=== PATIENT | male | born 1960 | race Caucasian/White ===

== ENCOUNTER 2021-08-26 08:31 | Inpatient (IN) | payer MEDICAID ==
[~2021-08-26] VITALS: Ht 190.5 cm; Wt 99.3 kg
[2021-08-26 08:35] VITALS: BP_SYST 96
--- NOTE | 2021-08-26 08:39 | NUR ---
Patient to ER bed 8 to gown for evaluation. Side rails up. Report given to Pooja PÉREZ.
[2021-08-26] MEDS ORDERED: dilTIAZem HCL IVP 5 MG/ML VIAL IVP ONE ×3 (08:45→09:30)
--- NOTE | 2021-08-26 08:45 | NUR ---
Assumed care of patient who came from home c/o rapid heart rate x 2 days. Patient states he fell in the shower on 08/24/2021 and felt some dizziness, lack of balance after fall. He states he feels pain to his left arm and shoulder. Patient states he has no hx of health concerns and has never been diagnosed with a cardiac-related condition. Patient is A&Ox4, calm and cooperative. He is on gurney and appears in no signs of acute distress. Denies chest pain at this time.
[2021-08-26] MEDS ORDERED: dilTIAZem HCL IVP 5 MG/ML VIAL ONE (08:50)
--- NOTE | 2021-08-26 08:50 | NUR ---
ER Dr. Moya at bedside examining patient.
--- NOTE | 2021-08-26 08:52 | NUR ---
PORTABLE XRAY AT THE BEDSIDE
--- NOTE | 2021-08-26 09:03 | NUR ---
LAB AT THE BEDSIDE FOR BLOOD DRAW
[2021-08-26 09:23] LABS: BASOPHILS % (AUTO) 0.5 % (0.0-2.0); EOSINOPHILS # (AUTO) 0.1 K/uL (0.0-0.4); EOSINOPHILS % (AUTO) 1.4 % (0.0-4.0); HEMATOCRIT 42.9 % (36-54); HEMOGLOBIN 14.9 g/dL (14.0-18.0); LYMPHOCYTES % (AUTO) 16.5 % (20.5-51.5); MEAN CORPUSCULAR HEMOGLOBIN 31 pg (27-31); MEAN CORPUSCULAR HGB CONC 35 % (32-36); MEAN CORPUSCULAR VOLUME 88 fL (79.0-98.0); MONOCYTES # (AUTO) 0.3 K/uL (0.0-1.0); MONOCYTES % (AUTO) 4.9 % (1.7-9.3); NEUTROPHILS # (AUTO) 4.8 K/uL (1.8-7.7); NEUTROPHILS % (AUTO) 76.7 % (40.0-70.0); PLATELET COUNT (AUTO) 204 K/uL (130-430); RED BLOOD CELL COUNT(AUTO) 4.88 MIL/uL (4.2-6.2); RED CELL DISTRIBUTION WIDTH 16.1 % (9.0-15.0); WHITE BLOOD COUNT (AUTO) 6.2 K/uL (4.8-10.8)
[2021-08-26] MEDS ORDERED: DILTIAZEM HCL 60 MG TABLET PO ONE (09:30)
[2021-08-26 09:51] LABS: ANION GAP 8 (5-15); CALCIUM 8.4 mg/dL (8.4-11.0); CHLORIDE 104 mmol/L (98-107); CREATININE 0.82 mg/dL (0.55-1.30); GLUCOSE 324 mg/dL (70-99); POTASSIUM 4.4 mmol/L (3.5-5.1); SODIUM SERUM 136 mmol/L (136-145); UREA NITROGEN, BLOOD 13 mg/dL (8-21)
[2021-08-26 09:58] LABS: GFR AFRICAN AMERICAN 122 mL/min (>90)
[2021-08-26 10:07] LABS: ALANINE AMINOTRANSFERASE 27 U/L (12-78); ALBUMIN 3.3 g/dL (3.4-4.8); ASPARTATE AMINOTRANSFERASE 17 U/L (10-37); THYROID STIMULATING HORMONE 2.43 uIu/mL (0.36-3.74); TOTAL BILIRUBIN 0.6 mg/dL (0.0-1.0)
--- NOTE | 2021-08-26 10:10 | NUR ---
PT ABLE TO VOID IN URINAL, SPECIMEN SENT TO LAB
--- NOTE | 2021-08-26 10:41 | NUR ---
DR. CORREIA SPEAKING TO DR. BISWAS REGARDING ADMISSION. TO PUT IN ADMIT ORDERS
[2021-08-26 10:45] LABS: BARBITURATE, URINE NEGATIVE (NEG <=200); BENZODIAZEPINE, URINE NEGATIVE (NEG <=150); CANNABINOID, URINE NEGATIVE (NEG <=50); COCAINE, URINE NEGATIVE (NEG <=150); METHAMPHETAMINES SCREEN,URINE NEGATIVE (NEG <=500); OPIATE, URINE NEGATIVE (NEG <=100); PHENCYCLIDINE SCREEN,URINE NEGATIVE (NEG <=25); UR TRICYCLIC ANTIDEPRESSANTS NEGATIVE (NEG <=300); URINE AMPHETAMINE NEGATIVE (NEG <=500); URINE METHADONE NEGATIVE (NEG <=200); URINE OXYCODONE SCREEN NEGATIVE (NEG <=100); URINE PROPOXYPHENE SCREEN NEGATIVE (NEG <=300)
--- NOTE | 2021-08-26 11:08 | NUR ---
Admit bed requested Patient will be admitted to care of . Admitted to TELE unit. Diagnosis TACHYCARDIA, DIZZINESS Inpatient (Yes or No) YES Observation (Yes or No) NO Orientation concerns or request close to nursing station (Yes or No) NO Covid Status NEGATIVE On vent or bipap NO Isolation requirements NO Needs a sitter NO From Home (Yes or if No enter name of facility) HOME Requires Dialysis (Yes or No) NO Med Rec Completed (Yes of No) YES
[2021-08-26] MEDS ORDERED: MORPHINE 2 MG/ML INJ. SYRINGE IVP PRN (11:15)
[2021-08-26] MEDS ORDERED: ONDANSETRON HCL 4 MG/2 ML VIAL IVP PRN (11:15)
[2021-08-26] MEDS ORDERED: ECO81 PO (11:30)
--- NOTE | 2021-08-26 11:41 | NUR ---
Medication reconciliation completed with information provided by PT. Any prior medication reconciliation on file was reviewed and corrected.
--- NOTE | 2021-08-26 12:15 | NUR ---
Patient will be admitted to care of Dr. Aponte. Admitted to tele unit. Will go to room 106B. Belongings list completed. Complete and up to date summary report printed. SBAR report to be given at bedside with opportunity for questions.
[2021-08-26 12:23] VITALS: BP_SYST 101
--- NOTE | 2021-08-26 12:30 | NUR ---
ADMISSION NOTE: Patient alert, oriented, verbally responsive. IV patent, no acute distress noted, patient ambulatory and BRP. Will continue to monitor.
--- NOTE | 2021-08-26 12:32 | NUR ---
CONSULTATION PAGED REASON FOR CONSULTATION:TACHYCARDIA WAS CONSULT CALLED?Y -PERSON WHO WAS NOTIFIED:HARPREET CONSULTING PHYSICIAN:TA BOND MOTOR OPERATOR SPECIALTY:CARDIO MOTOR OPERATOR PHONE NUMBER:[phone] REQUESTING PHYSICIAN:
[2021-08-26 12:37] VITALS: BP_SYST 101
[2021-08-26 16:00] VITALS: BP_SYST 107
[2021-08-26] MEDS ORDERED: ASPIRIN 325 MG TABLET PO ONE (16:00)
--- NOTE | 2021-08-26 19:12 | NUR ---
CLOSING NOTE: Patient alert, oriented, verbally responsive, BRP, able to make his needs known. No acute distress throughout shift, IV patent. Kept clean and dry throughout shift, safety precaution observed, bed alarm on, call light within reach, side rails up for safety. Will continue to monitor until night RN shift.
[2021-08-26 19:15] VITALS: BP_SYST 104
--- NOTE | 2021-08-26 19:18 | NUR ---
OPENING NOTES: Patient received from AM shift. Patient is AA&Ox4 able to make needs known denies any pain or distress at this time. Chest rise is even unlabored on RA. Normal heart sounds present S1 and S2 on tele monitoring. Active BSx4, denies pain with palpation, no distention is noted. Patient is ambulatory with steady gait, continent of B&B and denies pain or problems with urination. No skin issues were noted. Safety protocols are in place, patient has call light within reach. Will resume care and continue to monitor throughout the shift.
[2021-08-26 20:00] VITALS: BP_SYST 104
[2021-08-26] MEDS: METOPROLOL TARTRATE 25 MG TABLET PO SCH (21:00)
[2021-08-26 21:51] LABS: CHOLESTEROL 181 mg/dL (<200); HDL CHOLESTEROL 25 mg/dL (>45); TRIGLYCERIDES 177 mg/dL (30-150)
[2021-08-26 21:52] LABS: LDL CHOLESTEROL 124 mg/dL (<100)
[2021-08-27 00:15] VITALS: BP_SYST 110
--- NOTE | 2021-08-27 00:30 | NUR ---
PATIENT RESTING: Patient resting quietly. No acute distress noted. Vital signs within normal range. Patient denies pain, call light is within reach.
[2021-08-27 06:19] LABS: BASOPHILS % (AUTO) 0.9 % (0.0-2.0); EOSINOPHILS # (AUTO) 0.1 K/uL (0.0-0.4); EOSINOPHILS % (AUTO) 2.3 % (0.0-4.0); HEMATOCRIT 37.3 % (36-54); HEMOGLOBIN 13.1 g/dL (14.0-18.0); LYMPHOCYTES % (AUTO) 22.6 % (20.5-51.5); MEAN CORPUSCULAR HEMOGLOBIN 31 pg (27-31); MEAN CORPUSCULAR HGB CONC 35 % (32-36); MEAN CORPUSCULAR VOLUME 89 fL (79.0-98.0); MONOCYTES # (AUTO) 0.3 K/uL (0.0-1.0); MONOCYTES % (AUTO) 6.7 % (1.7-9.3); NEUTROPHILS # (AUTO) 2.9 K/uL (1.8-7.7); NEUTROPHILS % (AUTO) 67.5 % (40.0-70.0); PLATELET COUNT (AUTO) 170 K/uL (130-430); RED BLOOD CELL COUNT(AUTO) 4.21 MIL/uL (4.2-6.2); RED CELL DISTRIBUTION WIDTH 15.7 % (9.0-15.0); WHITE BLOOD COUNT (AUTO) 4.4 K/uL (4.8-10.8)
--- NOTE | 2021-08-27 07:22 | NUR ---
CLOSING NOTES: Patient is in bed resting no s/s of distress noted at this time. Patient is able to verbalize needs and has call light within reach. All current shift needs have been met. Will differ current care to AM shift nurse for continuity of care.
[2021-08-27 07:25] LABS: CALCIUM 8.7 mg/dL (8.4-11.0); CREATININE 0.74 mg/dL (0.55-1.30); PHOSPHORUS 3.2 mg/dL (2.7-4.5); POTASSIUM 3.7 mmol/L (3.5-5.1)
[2021-08-27 07:30] VITALS: BP_SYST 116
--- NOTE | 2021-08-27 08:00 | NUR ---
OPENING NOTES: PATIENT RESTING IN BED. BREATHING EVEN AND NON LABORED TO RA. DENIES ANY DISCOMFORT AT THIS TIME. FALL AND SAFETY PRECAUTION REINFORCED. CALL LIGHT WITHIN REACH.
[2021-08-27] MEDS: METOPROLOL TARTRATE 25 MG TABLET PO SCH (08:31)
[2021-08-27] MEDS ORDERED: DILTIAZEM HCL 120 MG CAP.SR.24H PO SCH (09:00)
[2021-08-27] MEDS ORDERED: ASPIRIN 81 MG TAB.CHEW PO SCH (09:00)
[2021-08-27] MEDS ORDERED: lisinopriL 5 MG TABLET PO SCH (09:00)
[2021-08-27] MEDS ORDERED: ATORVASTATIN 20 MG TABLET PO SCH (09:00)
[2021-08-27] MEDS ORDERED: APIXABAN 2.5 MG TABLET PO ONE (09:30)
[2021-08-27] MEDS ORDERED: DILT120C89 PO (09:37)
[2021-08-27] MEDS ORDERED: APIX5TAB PO (09:37)
[2021-08-27 10:33] VITALS: BP_SYST 107
--- NOTE | 2021-08-27 10:55 | NUR ---
D/C Patient Patient given medication reconciliation form and D/C instructions. Exit Care provided. Patient verbalized understanding. MD discussed with patient the results and treatment provided. Ambulatory with steady gait for discharge to home. Patient in stable condition, ID band removed. IV catheter removed, intact and dressing applied, no active bleeding. E script sent to preferred pharmacy. All belongings sent with patient.
[2021-08-27] MEDS ORDERED: APIXABAN 2.5 MG TABLET PO SCH (21:00)
== END 2021-08-27 10:55 | disposition home or self-care (01) | DRG 201 ==
LOC: SED 08:31 → STU 11:06
PROVIDERS: ADMIT Student in an Organized Health Care Education/Training Program; ATTEND Student in an Organized Health Care Education/Training Program
DX: I48.92 Unspecified atrial flutter (principal); E72.51 Non-ketotic hyperglycinemia; E88.09 Other disorders of plasma-protein metabolism, not elsewhere classified; I45.10 Unspecified right bundle-branch block; Z20.822 Contact with and (suspected) exposure to COVID-19; E78.5 Hyperlipidemia, unspecified; Z85.828 Personal history of other malignant neoplasm of skin; Z79.01 Long term (current) use of anticoagulants
CPT/HCPCS: 36415; 71045; 80048; 80053; 80061; 80307; 83036; 83735; 83880; 84100; 84439; 84443; 84484; 85025; 93005; 93306; 93880; 96374; 99285; G0378; J3490

== ENCOUNTER 2022-05-09 08:45 | Emergency (ER) | payer BC, OTHER ==
[~2022-05-09] VITALS: Ht 193 cm; Wt 84.8 kg
[~2022-05-09 08:45] MED LIST: APIX5TAB PO; DILT120C89 PO; ECO81 PO
[2022-05-09 08:51] VITALS: BP_SYST 129
--- NOTE | 2022-05-09 09:05 | NUR ---
Pt bib self from home, ambulated to bed 4. Pt A&Ox4, able to make needs known. Pt c/o bilateral hip pain x7 days. Pt rates pain 10/10. Pt describes pain as sharp. Pt states pain when getting in and out of bed. Pt states he has been taking Extra Strength Tylenol for pain. Pt denies injury. Pt denies falling. Pt denies arthritis. Pt states he takes Eliquiz for afib. Safety measures in place.
--- NOTE | 2022-05-09 09:12 | NUR ---
ER Dr. Moya at bedside examining patient.
[2022-05-09] MEDS ORDERED: IBUPROFEN 800 MG TABLET PO ONE (09:15)
[2022-05-09] MEDS ORDERED: HYDROcodone/ACETAMIN 10-325 MG TAB PO ONE (09:15)
--- NOTE | 2022-05-09 09:23 | NUR ---
Xray at bedside.
--- NOTE | 2022-05-09 09:33 | NUR ---
Placed in room 4 . Placed on monitoring and evaluation advisor, blood pressure machine and pulse oximeter. To gown for exam. Side rails up. Report given to
[2022-05-09 09:47] LABS: BASOPHILS # (AUTO) 0.1 K/uL (0.0-0.2); BASOPHILS % (AUTO) 0.9 % (0.0-2.0); EOSINOPHILS % (AUTO) 0.2 % (0.0-4.0); HEMATOCRIT 32.8 % (36-54); HEMOGLOBIN 11.3 g/dL (14.0-18.0); LYMPHOCYTES # (AUTO) 0.9 K/uL (1.0-5.5); MEAN CORPUSCULAR HEMOGLOBIN 35 pg (27-31); MEAN CORPUSCULAR HGB CONC 35 % (32-36); MEAN CORPUSCULAR VOLUME 100 fL (79.0-98.0); MONOCYTES # (AUTO) 0.1 K/uL (0.0-1.0); MONOCYTES % (AUTO) 1.2 % (1.7-9.3); NEUTROPHILS # (AUTO) 9.1 K/uL (1.8-7.7); PLATELET COUNT (AUTO) 116 K/uL (130-430); RED BLOOD CELL COUNT(AUTO) 3.27 MIL/uL (4.2-6.2); RED CELL DISTRIBUTION WIDTH 16.5 % (9.0-15.0)
[2022-05-09 09:53] LABS: WHITE BLOOD COUNT (AUTO) 10.2 K/uL (4.8-10.8)
[2022-05-09 10:13] LABS: ALBUMIN 3.2 g/dL (3.4-4.8); C-REACTIVE PROTEIN QUANT 11.7 mg/dL (0-0.5); CALCIUM 8.9 mg/dL (8.4-11.0); CREATININE 0.76 mg/dL (0.55-1.30); TOTAL BILIRUBIN 0.9 mg/dL (0.0-1.0); URIC ACID 4.5 mg/dL (2.4-7.0)
--- NOTE | 2022-05-09 10:24 | NUR ---
Pt awake and alert with son at bedside.
[2022-05-09] MEDS ORDERED: INSULIN REGULAR, HUMAN 100 UNITS/ML, 3 ML VIAL SUBCUT SCH (10:45)
--- NOTE | 2022-05-09 10:45 | NUR ---
Dr Moya at bedside discussing POC.
[2022-05-09] MEDS ORDERED: HYDR-3917 PO (10:48)
[2022-05-09] MEDS ORDERED: IBUP-1969 PO (10:48)
[2022-05-09] MEDS ORDERED: METF-518 PO (10:48)
[2022-05-09 11:02] LABS: ERYTHROCYTE SEDIMENTATION RATE 43 MM/HR (0-15)
[2022-05-09] MEDS ORDERED: INSULIN REGULAR, HUMAN 10 UNITS/0.1 ML, 3 ML VIAL ONE (11:06)
--- NOTE | 2022-05-09 11:11 | NUR ---
Patient given written and verbal discharge instructions and verbalizes understanding. ER Dr Moya discussed with patient the results and treatment provided. Patient in stable condition. ID arm band removed. Rx of Metformin, Gilson, and Motrin given. Patient educated on pain management and to follow up with PMD. Pain Scale 2/10 Opportunity for questions provided and answered. Medication side effect fact sheet provided.
[2022-05-09 11:14] VITALS: BP_SYST 118
[2022-05-09 11:17] LABS: NEUTROPHILS % (AUTO) 88.7 % (40.0-70.0)
[2022-05-10] MEDS ORDERED: HYDR-3917 PO (09:05)
[2022-05-10] MEDS ORDERED: LIDO1ADH71 TD (09:05)
[2022-05-10] MEDS ORDERED: ACET-2634 PO (09:05)
== END 2022-05-09 11:11 | disposition home or self-care (01) ==
LOC: SED 08:45
DX: E16.2 Hypoglycemia, unspecified (principal); M25.552 Pain in left hip; M25.551 Pain in right hip; Z79.899 Other long term (current) drug therapy
CPT/HCPCS: 36415; 72170-TC; 80053; 84550; 85025; 85651-TC; 86140; 96372; 99284; J1815

== ENCOUNTER 2022-05-10 07:53 | Emergency (ER) | payer BC, OTHER ==
[~2022-05-10] VITALS: Ht 188 cm; Wt 90.7 kg
[~2022-05-10 07:53] MED LIST changes: +HYDR-3917 PO; +IBUP-1969 PO; +METF-518 PO
[2022-05-10 07:55] VITALS: BP_SYST 125
--- NOTE | 2022-05-10 08:00 | NUR ---
BROUGHT BACK TO BED #7 VIA WHEELCHAIR, PLACED IN BED AND TRIAGED. REPORT GIVEN TO ZULY
[2022-05-10] MEDS ORDERED: MORPHINE 4 MG INJ. 4 MG/ML VIAL IM ONE (08:30)
--- NOTE | 2022-05-10 08:40 | NUR ---
PT TO XRAY VIA W/C
[2022-05-10] MEDS ORDERED: LIDO1ADH71 TD (09:05)
[2022-05-10] MEDS ORDERED: ACET-2634 PO (09:05)
[2022-05-10] MEDS ORDERED: HYDR-3917 PO (09:05)
[2022-05-10] MEDS ORDERED: HYDROcodone/ACETAMIN 5-325 MG TAB (NORCO/ VICODIN) PO ONE (10:00)
[2022-05-10 10:16] VITALS: BP_SYST 111
--- NOTE | 2022-05-10 10:18 | NUR ---
DISCHARGE INSTRUCTIONS REVIEWED WITH PT, PT VERBALIZED UNDERSTANDING AND DENIED ANY QUESTIONS. PT ASSISTED ONTO W/C AND TRANSFERRED TO SONS CAR WITH NO ACUTE DISTRESS. BREATHING EVEN AND UNLABORED. PT WITH ALL DISCHARGE PAPERWORK AND PERSONAL BELONGINGS
== END 2022-05-10 10:16 | disposition home or self-care (01) ==
LOC: SED 07:53
DX: S76.012A Strain of muscle, fascia and tendon of left hip, initial encounter (principal); Z79.899 Other long term (current) drug therapy; W22.01XA Walked into wall, initial encounter; Y93.89 Activity, other specified; Y92.89 Other specified places as the place of occurrence of the external cause; Y99.8 Other external cause status
CPT/HCPCS: 99284; 82962; 72100; 73502; 96372; J2270

== ENCOUNTER 2022-06-16 19:52 | Emergency (ER) | payer BC, OTHER ==
[~2022-06-16 19:52] MED LIST changes: +ACET-2634 PO; +LIDO1ADH71 TD
[2022-06-16 20:58] VITALS: BP_SYST 128
== END 2022-06-16 22:24 | disposition left against medical advice (07) ==
LOC: SED 19:52
DX: R41.82 Altered mental status, unspecified (principal); Z53.21 Procedure and treatment not carried out due to patient leaving prior to being seen by health care provider
CPT/HCPCS: 99281

== ENCOUNTER → 2022-06-17 | Emergency (ER) | payer BC ==
[~2022-06-17] VITALS: Ht 193 cm; Wt 84.8 kg
[~2022-06-17] MED LIST changes: +cefTRIAXone 1 GM in LIDOCAINE 1%, 20 ML MDV 2.1 ML IM ONE
--- NOTE | 2022-06-17 12:00 | NUR ---
Urine specimen collected and sent to lab.
[2022-06-17 12:20] VITALS: BP_SYST 107
[2022-06-17 12:45] LABS: ANION GAP 6 (5-15); CHLORIDE 98 mmol/L (98-107); CREATININE 1.06 mg/dL (0.55-1.30); GFR AFRICAN AMERICAN 91 mL/min (>90); GLUCOSE 169 mg/dL (70-99); UREA NITROGEN, BLOOD 22 mg/dL (8-21)
[2022-06-17 12:50] LABS: HEMATOCRIT 27.3 % (36-54); HEMOGLOBIN 9.3 g/dL (14.0-18.0); MEAN CORPUSCULAR HEMOGLOBIN 35 pg (27-31); MEAN CORPUSCULAR HGB CONC 34 % (32-36); MEAN CORPUSCULAR VOLUME 103 fL (79.0-98.0); PLATELET COUNT (AUTO) 88 K/uL (130-430); RED BLOOD CELL COUNT(AUTO) 2.66 MIL/uL (4.2-6.2); RED CELL DISTRIBUTION WIDTH 16.8 % (9.0-15.0); WHITE BLOOD COUNT (AUTO) 12.8 K/uL (4.8-10.8)
[2022-06-17 12:52] LABS: BILIRUBIN,URINE NEGATIVE (NEGATIVE); BLOOD, URINE NEGATIVE (NEGATIVE); COLOR,URINE YELLOW (YELLOW); GLUCOSE,URINE 3+ (NEGATIVE); KETONES,URINE NEGATIVE (NEGATIVE); LEUKOCYTE ESTERASE ,URINE 1+ (NEGATIVE); NITRITE, URINE POSITIVE (NEGATIVE); PROTEIN URINE NEGATIVE (NEGATIVE)
[2022-06-17 12:52] LABS: ALANINE AMINOTRANSFERASE 28 U/L (12-78); ALBUMIN 3.4 g/dL (3.4-4.8); ALCOHOL, BLOOD 7 mg/dL (<10); ASPARTATE AMINOTRANSFERASE 15 U/L (10-37); TOTAL BILIRUBIN 1.5 mg/dL (0.0-1.0)
[2022-06-17 12:58] LABS: CLARITY/URINE HAZY (CLEAR)
[2022-06-17 13:04] LABS: BARBITURATE, URINE NEGATIVE (NEG <=200); BENZODIAZEPINE, URINE NEGATIVE (NEG <=150); CANNABINOID, URINE NEGATIVE (NEG <=50); COCAINE, URINE NEGATIVE (NEG <=150); METHAMPHETAMINES SCREEN,URINE NEGATIVE (NEG <=500); OPIATE, URINE NEGATIVE (NEG <=100); PHENCYCLIDINE SCREEN,URINE NEGATIVE (NEG <=25); UR TRICYCLIC ANTIDEPRESSANTS NEGATIVE (NEG <=300); URINE AMPHETAMINE NEGATIVE (NEG <=500); URINE METHADONE NEGATIVE (NEG <=200); URINE OXYCODONE SCREEN NEGATIVE (NEG <=100); URINE PROPOXYPHENE SCREEN NEGATIVE (NEG <=300)
[2022-06-17 13:28] LABS: BACTERIA,URINE RARE /HPF (None Seen); RBC,URINE 0-3 /HPF (0-3); WBC,URINE 20-50 /HPF (0-3)
--- NOTE | 2022-06-17 14:00 | NUR ---
PT CALLED NO ANSWER
[2022-06-17 14:04] LABS: BAND % (MANUAL) 3 % (0-6); BASOPHILS % (MANUAL) 0 % (0-2); EOSINOPHILS % (MANUAL) 0 % (0-7); LYMPHOCYTES % (MANUAL) 29 % (20-46); MONOCYTES % (MANUAL) 7 % (0-11)
--- NOTE | 2022-06-17 15:00 | NUR ---
pt c/o no answer. LWBS
== END | disposition left against medical advice (07) ==
LOC: SED 11:35
DX: R41.0 Disorientation, unspecified (principal); Z53.21 Procedure and treatment not carried out due to patient leaving prior to being seen by health care provider
CPT/HCPCS: 99281; 85027; 80307; 80053; 85007; 87086; 84484; 36415; 81000; G0482

== ENCOUNTER 2022-07-25 08:13 | Emergency (ER) | payer BC, MEDICAID ==
[~2022-07-25] VITALS: Ht 182.9 cm; Wt 81.2 kg
[~2022-07-25 08:13] MED LIST changes: -cefTRIAXone 1 GM in LIDOCAINE 1%, 20 ML MDV 2.1 ML IM ONE
[2022-07-25 08:21] VITALS: BP_SYST 126
--- NOTE | 2022-07-25 08:24 | NUR ---
Placed in room 3 . Placed on clinical research monitor, blood pressure machine and pulse oximeter. To gown for exam. Side rails up. Report given to
--- NOTE | 2022-07-25 08:25 | NUR ---
ER at bedside examining patient.
--- NOTE | 2022-07-25 08:35 | NUR ---
PATIENT ALBAN SCHAEFER FROM HOME. PATIENT C/O SEEING A YOUNG GIRL IN HIS HOME THAT WAS NOT THERE. STATES THIS HAS OCCURRED ONCE BEFORE. DENIES HEARING VOICES OR OTHER AUDITORY HALLUCINATIONS. DENIES SUICIDAL IDEATION. MEDICAL HISTORY OF DIABETES. BLOOD SUGAR CURRENTLY 93. MD AT BEDSIDE UPON ARRIVAL TO ER BED 3. VSS. DENIES PAIN. N/O RECEIVED FOR MEDICAL CLEARANCE.
[2022-07-25 09:08] LABS: ANION GAP 5 (5-15); BASOPHILS # (AUTO) 0.1 K/uL (0.0-0.2); BASOPHILS % (AUTO) 0.8 % (0.0-2.0); CALCIUM 8.2 mg/dL (8.4-11.0); CHLORIDE 103 mmol/L (98-107); EOSINOPHILS % (AUTO) 0.1 % (0.0-4.0); GFR AFRICAN AMERICAN 126 mL/min (>90); GLUCOSE 146 mg/dL (70-99); HEMOGLOBIN 7.2 g/dL (14.0-18.0); LYMPHOCYTES # (AUTO) 0.8 K/uL (1.0-5.5); LYMPHOCYTES % (AUTO) 8.9 % (20.5-51.5); MEAN CORPUSCULAR HEMOGLOBIN 36 pg (27-31); MEAN CORPUSCULAR HGB CONC 34 % (32-36); MEAN CORPUSCULAR VOLUME 105 fL (79.0-98.0); MONOCYTES # (AUTO) 0.1 K/uL (0.0-1.0); MONOCYTES % (AUTO) 0.7 % (1.7-9.3); NEUTROPHILS # (AUTO) 7.6 K/uL (1.8-7.7); NEUTROPHILS % (AUTO) 89.5 % (40.0-70.0); PLATELET COUNT (AUTO) 52 K/uL (130-430); RED CELL DISTRIBUTION WIDTH 18.5 % (9.0-15.0); UREA NITROGEN, BLOOD 16 mg/dL (8-21); WHITE BLOOD COUNT (AUTO) 8.5 K/uL (4.8-10.8)
[2022-07-25 09:10] LABS: RED BLOOD CELL COUNT(AUTO) 1.97 MIL/uL (4.2-6.2)
[2022-07-25 09:11] LABS: HEMATOCRIT 20.8 % (36-54)
[2022-07-25 09:12] LABS: ALANINE AMINOTRANSFERASE 16 U/L (12-78); ALBUMIN 3.2 g/dL (3.4-4.8); ASPARTATE AMINOTRANSFERASE 12 U/L (10-37)
[2022-07-25 09:13] LABS: ACETAMINOPHEN < 1 ug/mL (1-30)
[2022-07-25 09:14] LABS: ALCOHOL, BLOOD < 3 mg/dL (<10)
--- NOTE | 2022-07-25 09:14 | NUR ---
UA & COVID SAMPLE COLLECTED & SENT TO LAB
--- NOTE | 2022-07-25 09:35 | NUR ---
DR. CORREIA AT BEDSIDE
--- NOTE | 2022-07-25 11:43 | NUR ---
Patient given written and verbal discharge instructions and verbalizes understanding. ER MD DR. CORREIA discussed with patient the results and treatment provided. Patient in stable condition. ID arm band removed. Patient educated on pain management and to follow up with PMD. Pain Scale 0/10. Opportunity for questions provided and answered. Medication side effect fact sheet provided.
[2022-07-25 11:46] VITALS: BP_SYST 136
== END 2022-07-25 11:43 | disposition home or self-care (01) ==
LOC: SED 08:13
DX: R44.1 Visual hallucinations (principal); D64.9 Anemia, unspecified; Z79.899 Other long term (current) drug therapy; Z79.84 Long term (current) use of oral hypoglycemic drugs; Z20.822 Contact with and (suspected) exposure to COVID-19
CPT/HCPCS: 99285; 70450; 71045; 87426; 80053; 82550; 82962; 85025; 36415; 93005; 76376; G0482; G0480; G0481; 81025

== ENCOUNTER 2022-07-26 07:40 | Emergency (ER) | payer BC, OTHER ==
[~2022-07-26] VITALS: Ht 193 cm; Wt 89.8 kg
--- NOTE | 2022-07-26 07:45 | NUR ---
DR. CORREIA IN TRIAGE ROOM TO ASSESS PT.
--- NOTE | 2022-07-26 07:50 | NUR ---
PT TRIAGED AND TAKEN TO BED 6, ENDORED TO FABBY RN. PT BIB FOR FOLLOW UP LAB. PT WAS AT [facility] YESTERDAY AND WAS FOUND TO HAVE A LOW HGB. PT BACK HERE TO TODAY FOR FOLLOW UP CBC.
[2022-07-26 07:58] VITALS: BP_SYST 101
--- NOTE | 2022-07-26 07:59 | NUR ---
Patient arrived to ED 6 for c/o being on blood thinners and previously having a "low hemoglobin" count. Patient is responsive, alert & oriented x4. Respiration even and unlabored. No shortness of breath. Vital signs stable. Denies pain. Patient is able to talk. at bedside. Dr. Moya came to MSE patient. traffic monitor specialist placed. Will continue to monitor patient.
[2022-07-26 08:24] LABS: HEMOGLOBIN 7.3 g/dL (14.0-18.0); MEAN CORPUSCULAR HEMOGLOBIN 36 pg (27-31); MEAN CORPUSCULAR HGB CONC 34 % (32-36); MEAN CORPUSCULAR VOLUME 106 fL (79.0-98.0); PLATELET COUNT (AUTO) 60 K/uL (130-430); RED BLOOD CELL COUNT(AUTO) 2.02 MIL/uL (4.2-6.2); RED CELL DISTRIBUTION WIDTH 19.1 % (9.0-15.0); WHITE BLOOD COUNT (AUTO) 7.9 K/uL (4.8-10.8)
[2022-07-26 08:30] LABS: CALCIUM 8.6 mg/dL (8.4-11.0); CREATININE 0.85 mg/dL (0.55-1.30)
[2022-07-26 08:35] LABS: ALBUMIN 3.3 g/dL (3.4-4.8); TOTAL BILIRUBIN 1.9 mg/dL (0.0-1.0)
[2022-07-26 08:38] LABS: HEMATOCRIT 21.5 % (36-54)
--- NOTE | 2022-07-26 08:39 | NUR ---
CRITICAL LABS HGB 7.[address] CORREIA MADE AWARE, NNOS. .
--- NOTE | 2022-07-26 08:45 | NUR ---
Denies AH/VH/SI/HI, patient is coherent, able to follow commands. at bedside. Will continue to monitor.
--- NOTE | 2022-07-26 08:46 | NUR ---
Dr. Moya came to talk to family about lab results and plan of care.
--- NOTE | 2022-07-26 08:54 | NUR ---
Patient given written and verbal discharge instructions and verbalizes understanding. ER MD discussed with patient the results and treatment provided. Patient in stable condition. ID arm band removed. Follow-up with PCP in few weeks. Patient educated on pain management and to follow up with PMD. Opportunity for questions provided and answered. Medication side effect fact sheet provided.
[2022-07-26 08:57] VITALS: BP_SYST 120
[2022-07-26 10:16] LABS: ATYPICAL LYMPHOCYTES % 11 % (0-0); BAND % (MANUAL) 10 % (0-6); BASOPHILS % (MANUAL) 0 % (0-2); EOSINOPHILS % (MANUAL) 0 % (0-7); LYMPHOCYTES % (MANUAL) 36 % (20-46); METAMYELOCYTES % 5 % (0-0); MONOCYTES % (MANUAL) 6 % (0-11); MYELOCYTES % 4 % (0-0); PROMYELOCYTES % 4 % (0-0)
== END 2022-07-26 08:57 | disposition home or self-care (01) ==
LOC: SED 07:40
DX: D64.9 Anemia, unspecified (principal); Z79.899 Other long term (current) drug therapy
CPT/HCPCS: 36415; 80053; 85007; 85027; 99283

== ENCOUNTER 2022-08-16 11:58 | Inpatient (IN) | payer BC, OTHER ==
[~2022-08-16] VITALS: Ht 190.5 cm; Wt 77.1 kg
[2022-08-16 12:00] VITALS: BP_SYST 111
--- NOTE | 2022-08-16 12:00 | NUR ---
BROUGHT BACK TO BED #8 AND TRIAGED. REPORT GIVEN TO JORGE
--- NOTE | 2022-08-16 12:03 | NUR ---
Pt brought by with c/o generalized weakness, pale skin, denies bleeding, states he has Hx of anemia, skin pink and warm, cap refill <, VSS.
--- NOTE | 2022-08-16 12:05 | NUR ---
Dr Campos evaluating patient at bedside
[2022-08-16 12:51] LABS: HEMATOCRIT 23.8 % (36-54); HEMOGLOBIN 7.9 g/dL (14.0-18.0); MEAN CORPUSCULAR HEMOGLOBIN 38 pg (27-31); MEAN CORPUSCULAR HGB CONC 33 % (32-36); MEAN CORPUSCULAR VOLUME 115 fL (79.0-98.0); PLATELET COUNT (AUTO) 50 K/uL (130-430); RED BLOOD CELL COUNT(AUTO) 2.08 MIL/uL (4.2-6.2); RED CELL DISTRIBUTION WIDTH 22.6 % (9.0-15.0)
[2022-08-16 13:06] LABS: CALCIUM 8.7 mg/dL (8.4-11.0); CREATININE 0.87 mg/dL (0.55-1.30)
[2022-08-16 13:10] LABS: INR 1.1 (0.80-1.20); PROTHROMBIN TIME 10.9 SECS (9.5-12.5)
[2022-08-16 13:11] LABS: ALBUMIN 3.6 g/dL (3.4-4.8); TOTAL BILIRUBIN 2.9 mg/dL (0.0-1.0)
[2022-08-16 13:42] LABS: BAND % (MANUAL) 11 % (0-6); LYMPHOCYTES % (MANUAL) 35 % (20-46)
[2022-08-16 13:43] LABS: ATYPICAL LYMPHOCYTES % 1 % (0-0); BASOPHILS % (MANUAL) 0 % (0-2); EOSINOPHILS % (MANUAL) 0 % (0-7); METAMYELOCYTES % 5 % (0-0); MONOCYTES % (MANUAL) 10 % (0-11); MYELOCYTES % 2 % (0-0)
[2022-08-16] MEDS ORDERED: MORPHINE 4 MG INJ. 4 MG/ML VIAL IVP ONE (13:45)
[2022-08-16] MEDS ORDERED: ONDANSETRON HCL 4 MG/2 ML VIAL ONE (14:02)
[2022-08-16] MEDS ORDERED: ONDANSETRON HCL 4 MG/2 ML VIAL IVP ONE (14:15)
[2022-08-16] MEDS ORDERED: PIPERACILLIN/TAZOBACTAM 3.375 GM/VIAL (ZOSYN) IV ONE (14:40)
[2022-08-16] MEDS ORDERED: NACL 0.9% 2,100 ML IV ONE (14:45)
[2022-08-16] MEDS: PIPERACILLIN/TAZO 3.375 GM in NS 50 ML IV ONE ×2 (14:46→15:10)
--- NOTE | 2022-08-16 14:46 | NUR ---
Blood requisition sent to the lab
--- NOTE | 2022-08-16 14:47 | NUR ---
Pt A&Ox2, VSS,respirations even and unlabored, cap refill <3.
--- NOTE | 2022-08-16 14:57 | NUR ---
Pt returning from CT on stable condition
[2022-08-16] MEDS ORDERED: MUPIROCIN 2% TOPICAL OINTMENT 22 GM NS PRN (15:00)
[2022-08-16] MEDS ORDERED: ACETAMINOPHEN 325 MG TABLET PO PRN ×2 (15:00)
[2022-08-16] MEDS ORDERED: MORPHINE 2 MG/ML INJ. SYRINGE IVP PRN (15:00)
[2022-08-16] MEDS ORDERED: POTASSIUM CHLORIDE 20 MEQ TAB.PRT.SR PO PRN (15:00)
[2022-08-16] MEDS ORDERED: DOCUSATE SODIUM 100 MG CAPSULE PO PRN (15:00)
[2022-08-16] MEDS ORDERED: ONDANSETRON HCL 4 MG/2 ML VIAL IVP PRN (15:00)
[2022-08-16] MEDS ORDERED: MAGNESIUM SULFATE 50 ML IV PRN (15:00)
--- NOTE | 2022-08-16 15:11 | NUR ---
Pt urinating at this time, urine sent to the lab
--- NOTE | 2022-08-16 15:20 | NUR ---
Admit bed requested Patient will be admitted to care of [Prema]. Admitted to [Tele] unit. Diagnosis [ANEMIA] Inpatient (Yes or No) [Yes] Observation (Yes or No) [No] Orientation concerns or request close to nursing station (Yes or No) [yes] Covid Status [n/a] On vent or bipap [n/a] Isolation requirements [n/a] Needs a sitter [n/a] From Home (Yes or if No enter name of facility) [yes] Requires Dialysis (Yes or No) [n/a] Med Rec Completed (Yes of No) [yes]
[2022-08-16] MEDS ORDERED: PRO40 PO (15:27)
[2022-08-16] MEDS ORDERED: INSU300I SQ (15:27)
[2022-08-16] MEDS ORDERED: EMPA1TAB30 (15:27)
[2022-08-16] MEDS ORDERED: DICL50TA9 PO (15:27)
[2022-08-16] MEDS ORDERED: GABA-529 PO (15:27)
--- NOTE | 2022-08-16 15:36 | NUR ---
Medication reconciliation completed with information provided by patient. Any prior medication reconciliation on file was reviewed and corrected.
--- NOTE | 2022-08-16 16:15 | NUR ---
ADMISSION NOTE Patient admitted from ER via gurney, received SBAR report from Ashely PÉREZ. Patient admitted with diagnosis of Sepsis. Patient is confused oriented X 1, irritable at time during admission process. Repiration even and unlabored, no signs of distress. Moves both upper and lower extremities. IV patent to right forearm patent. Reorient patient to room, bed in low position,call light w/in reached
[2022-08-16 16:23] LABS: BILIRUBIN,URINE NEGATIVE (NEGATIVE); BLOOD, URINE 1+ (NEGATIVE); COLOR,URINE YELLOW (YELLOW); GLUCOSE,URINE TRACE (NEGATIVE); KETONES,URINE NEGATIVE (NEGATIVE); LEUKOCYTE ESTERASE ,URINE 2+ (NEGATIVE); NITRITE, URINE POSITIVE (NEGATIVE); PH,URINE 5.5 (5.0-8.0); PROTEIN URINE TRACE (NEGATIVE)
--- NOTE | 2022-08-16 16:28 | NUR ---
Patient will be admitted to care of Dr Lloyd . Admitted to Tele unit. Will go to room 120B . . Complete and up to date summary report printed. SBAR report to be given at bedside with opportunity for questions.
[2022-08-16 16:33] LABS: CLARITY/URINE HAZY (CLEAR)
[2022-08-16 16:36] VITALS: BP_SYST 103
[2022-08-16 16:41] LABS: BACTERIA,URINE MODERATE /HPF (None Seen); FINE GRANULAR CASTS,URINE 0-10 /LPF (None Seen); MUCUS,URINE 1+ /LPF (None Seen); WBC,URINE 20-50 /HPF (0-3)
[2022-08-16 16:54] VITALS: BP_SYST 103
[2022-08-16] MEDS: PIPERACILLIN/TAZO 3.375 GM in NS 50 ML IV SCH (18:41)
--- NOTE | 2022-08-16 18:56 | NUR ---
paged paged doctor thompson
--- NOTE | 2022-08-16 19:00 | NUR ---
Patient A/ox1, multiple attempt getting out of bed,unsteady gait, removing IV line. Notified Dr. Lloyd,order Stat CT scan of head, place patient close to nursing, set bed alarm,bed in low position and calllight w/in reached
[2022-08-16 20:00] VITALS: BP_SYST 115
[2022-08-16] MEDS: LORazepam 2 MG/ML VIAL IVP PRN (21:20)
[2022-08-17] MEDS: PIPERACILLIN/TAZO 3.375 GM in NS 50 ML IV SCH ×4 (00:28→18:02)
[2022-08-17 01:12] VITALS: BP_SYST 94
[2022-08-17] MEDS: LORazepam 2 MG/ML VIAL IVP PRN (02:24)
--- NOTE | 2022-08-17 03:16 | NUR ---
CONSULTATION PAGED/CALLED Reason for Consultation: A FIB Person Who was Notified:JANIE Consulting Physician: SABAS Block Cleaner Specialty: Ordering Physician: KAVEH
--- NOTE | 2022-08-17 03:17 | NUR ---
CONSULTATION PAGED/CALLED Reason for Consultation: ANEMIA Person Who was Notified: THOMAS Consulting Physician: DRAGAN Clerical Supervisor Specialty: Ordering Physician: KAVEH
--- NOTE | 2022-08-17 06:30 | NUR ---
Patient is alert, extremely confused, he requires constant direct monitoring for safety. Patient has refused to wear telemetry box since the start of shift, when it is replaced, patient removes and throws it on the floor, vitals are stable through out the shift. Patient did received ordered 2 units of PRBS's, no transfusion reactions noted, he tolerated the procedure well. Nurse had to sit directly in room with patient to chart, he made every attempt to remove the IV access with blood infusing. He is unpredictable getting up out of bed, he is a great fall risk, patient was also medicated twice in shift with IV Ativan, results were short lived, no injuries noted.
[2022-08-17 07:00] VITALS: BP_SYST 115
[2022-08-17 08:10] LABS: CALCIUM 8.6 mg/dL (8.4-11.0); CREATININE 0.79 mg/dL (0.55-1.30)
[2022-08-17 08:30] LABS: BASOPHILS # (AUTO) 0.1 K/uL (0.0-0.2); BASOPHILS % (AUTO) 0.8 % (0.0-2.0); EOSINOPHILS % (AUTO) 0.1 % (0.0-4.0); HEMATOCRIT 25.3 % (36-54); HEMOGLOBIN 8.7 g/dL (14.0-18.0); LYMPHOCYTES # (AUTO) 1.2 K/uL (1.0-5.5); LYMPHOCYTES % (AUTO) 8.9 % (20.5-51.5); MEAN CORPUSCULAR HEMOGLOBIN 36 pg (27-31); MEAN CORPUSCULAR HGB CONC 34 % (32-36); MEAN CORPUSCULAR VOLUME 106 fL (79.0-98.0); MONOCYTES # (AUTO) 0.1 K/uL (0.0-1.0); MONOCYTES % (AUTO) 0.6 % (1.7-9.3); NEUTROPHILS # (AUTO) 12.6 K/uL (1.8-7.7); RED CELL DISTRIBUTION WIDTH 22.9 % (9.0-15.0)
[2022-08-17 09:23] LABS: PLATELET COUNT (AUTO) 33 K/uL (130-430)
[2022-08-17] MEDS: DILTIAZEM HCL 120 MG CAP.SR.24H PO SCH (09:54)
[2022-08-17 11:24] LABS: NEUTROPHILS % (AUTO) 89.6 % (40.0-70.0)
[2022-08-17 12:01] VITALS: BP_SYST 120
[2022-08-17 15:40] VITALS: BP_SYST 110
[2022-08-17 16:00] VITALS: BP_SYST 112
--- NOTE | 2022-08-17 17:16 | NUR ---
END OF SHIFT SUMMARY: Patient in report was indicated that he was very agitated during the shift superintendent, however the patient was quite calm during the day shift. He slept off and on and when was awake, he generally watched TV all day. During the MD evaluations and during visits from his SO, he did demonstrate confusion regarding many different topics but patient does have a understanding of what is happening. For example, patient when seeing Dr. Lloyd indicated that he was having left sided pain. He kept referring to his "hip" however, radiological studies show that patient has kidney abnormalities that may be affecting patient. Patient's significant other states that he has been getting more and more confused over the last several months; she related it to medicine that he was taking. RN spent an extended time explaining the different possible causes of his confusion and forgetfulness. Suggested that she would want to talk to the primary MD regarding his state of mind prior to his discharge and to speak with the social work lecturer regarding what community resources may be available to her, as patient remains at their apartment all day alone while she is at work. Currently, patient is calm and resting in bed, although he refuses to wear tele monitor. It was returned to the tele check clerk. Also, he is able to ambulate and several times got out of bed to come to front nursing station to speak with RN. Rn answered questions and escorted patient back to bed, which he accepted without problems or incidents.
[2022-08-17 19:33] LABS: TOTAL IRON BIND. CAPACITY 216 ug/dL (250-450)
[2022-08-17 20:00] VITALS: BP_SYST 122
[2022-08-17] MEDS ORDERED: HALOPERIDOL LACTATE 5 MG/ML VIAL ONE (22:44)
[2022-08-17] MEDS ORDERED: HALOPERIDOL LACTATE 5 MG/ML VIAL IM PRN (22:45)
[2022-08-18] MEDS: PIPERACILLIN/TAZO 3.375 GM in NS 50 ML IV SCH ×4 (00:27→20:08)
[2022-08-18] MEDS: LORazepam 2 MG/ML VIAL IVP PRN ×2 (00:28→11:06)
[2022-08-18 00:49] VITALS: BP_SYST 112
[2022-08-18 07:02] LABS: BILIRUBIN,DIRECT 0.8 mg/dL (0.0-0.3); CALCIUM 8.5 mg/dL (8.4-11.0); CREATININE 0.79 mg/dL (0.55-1.30)
[2022-08-18 07:10] LABS: BASOPHILS # (AUTO) 0.1 K/uL (0.0-0.2); BASOPHILS % (AUTO) 0.6 % (0.0-2.0); EOSINOPHILS % (AUTO) 0.1 % (0.0-4.0); HEMATOCRIT 25.2 % (36-54); HEMOGLOBIN 8.5 g/dL (14.0-18.0); LYMPHOCYTES # (AUTO) 1.1 K/uL (1.0-5.5); LYMPHOCYTES % (AUTO) 7.1 % (20.5-51.5); MEAN CORPUSCULAR HEMOGLOBIN 36 pg (27-31); MEAN CORPUSCULAR HGB CONC 34 % (32-36); MEAN CORPUSCULAR VOLUME 106 fL (79.0-98.0); MONOCYTES # (AUTO) 0.1 K/uL (0.0-1.0); MONOCYTES % (AUTO) 0.5 % (1.7-9.3); NEUTROPHILS % (AUTO) 91.7 % (40.0-70.0); RED BLOOD CELL COUNT(AUTO) 2.38 MIL/uL (4.2-6.2); RED CELL DISTRIBUTION WIDTH 23.4 % (9.0-15.0); WHITE BLOOD COUNT (AUTO) 15.2 K/uL (4.8-10.8)
[2022-08-18 08:12] LABS: PLATELET COUNT (AUTO) 33 K/uL (130-430)
--- NOTE | 2022-08-18 08:20 | NUR ---
OPENING NOTES: RECEIVED BEDSIDE SBAR FROM PM SHIFT NURSE, NO S/S OF ANY DISTRESS, NON LABOR BREATHING, RESTING WELL IN BED WITH EYES CLOSED, BE AT LOW AND LOCKED POSITION CALL LIGHT IN REACH, ABLE TO MAKE ALL NEEDS KNOWN, WILL CONT TO MONITOR PATIENT PER ORDERS.
--- NOTE | 2022-08-18 10:05 | NUR ---
CM met with patient at bedside. patient is oriented to name only. Confused to place and purpose. Verbalizing about people who are not in the room. Patient nurse Merry confirms the hallucinations and that his S.O. is requesting for patient to go to a SNF. will call S.O. and confirm DCP.
[2022-08-18] MEDS: DILTIAZEM HCL 120 MG CAP.SR.24H PO SCH (10:32)
[2022-08-18 11:32] VITALS: BP_SYST 102
--- NOTE | 2022-08-18 13:33 | NUR ---
CM faxed DC referral to Yee at [facility] f#[phone]
--- NOTE | 2022-08-18 15:26 | NUR ---
SPOKE TO MR CRYSTAL PALOMO GIBRAN GAMEZ AT [phone] I FAXED THE PACKET TO [facility] AND WILL BE GETTING BACK TO US ABOUT SNF. HIS GIRLFRIEND STATED THAT SHE WOULD LIKE TO SEE ABOUT [facility].
[2022-08-18 16:38] VITALS: BP_SYST 107
[2022-08-18 20:00] VITALS: BP_SYST 119
--- NOTE | 2022-08-18 22:35 | NUR ---
Dietitian Recommendations *Recommend Consistent Carb Diet Monitor and evaluate PO intakes, GI, skin, labs Please refer to RD Assessment for details YODIT LY Addendum: 08/18/22 at [address] Amended: Links added.
[2022-08-19] VITALS: BP_SYST 123
[2022-08-19 01:06] LABS: FERRITIN 544 ng/mL (30-400)
[2022-08-19] MEDS: PIPERACILLIN/TAZO 3.375 GM in NS 50 ML IV SCH ×2 (01:11→05:32)
[2022-08-19] MEDS: LORazepam 2 MG/ML VIAL IVP PRN (01:11)
[2022-08-19 02:06] LABS: FOLATE (FOLIC ACID) 7.4 ng/mL (>3.0)
[2022-08-19 05:17] LABS: BASOPHILS # (AUTO) 0.1 K/uL (0.0-0.2); BASOPHILS % (AUTO) 0.6 % (0.0-2.0); EOSINOPHILS % (AUTO) 0.1 % (0.0-4.0); HEMATOCRIT 24.1 % (36-54); HEMOGLOBIN 8.1 g/dL (14.0-18.0); LYMPHOCYTES # (AUTO) 1.1 K/uL (1.0-5.5); LYMPHOCYTES % (AUTO) 8.5 % (20.5-51.5); MEAN CORPUSCULAR HEMOGLOBIN 35 pg (27-31); MEAN CORPUSCULAR HGB CONC 34 % (32-36); MEAN CORPUSCULAR VOLUME 105 fL (79.0-98.0); MONOCYTES # (AUTO) 0.1 K/uL (0.0-1.0); MONOCYTES % (AUTO) 0.6 % (1.7-9.3); NEUTROPHILS # (AUTO) 11.2 K/uL (1.8-7.7); NEUTROPHILS % (AUTO) 90.2 % (40.0-70.0); RED BLOOD CELL COUNT(AUTO) 2.29 MIL/uL (4.2-6.2); RED CELL DISTRIBUTION WIDTH 23.1 % (9.0-15.0); WHITE BLOOD COUNT (AUTO) 12.4 K/uL (4.8-10.8)
[2022-08-19 05:30] LABS: PLATELET COUNT (AUTO) 29 K/uL (130-430)
[2022-08-19 05:40] LABS: CALCIUM 8.5 mg/dL (8.4-11.0); CREATININE 0.76 mg/dL (0.55-1.30)
--- NOTE | 2022-08-19 08:00 | NUR ---
Initial notes Received patient wake in bed, AAOx1 ,no signs of distress. IV to right forearm patient. All safety secured, bed in low position and call light w/in reached
[2022-08-19 08:45] VITALS: BP_SYST 130
--- NOTE | 2022-08-19 09:45 | NUR ---
CM went to round on patient at bedside. He is off restraints. Oriented to name only; still confused to place and purpose
--- NOTE | 2022-08-19 09:57 | NUR ---
CM follow up with Ann Marie at [facility] [phone] regarding SNF placement and patient girlfriend preferring [facility]. Updated DC order and PT eval with notes faxed to f#[phone]. will follow up
[2022-08-19] MEDS: DILTIAZEM HCL 120 MG CAP.SR.24H PO SCH (10:03)
--- NOTE | 2022-08-19 10:45 | NUR ---
Family at bedside for questions and answers, patient resting in bed.
[2022-08-19 12:19] VITALS: BP_SYST 140
--- NOTE | 2022-08-19 12:19 | NUR ---
CM received a phone call from Monica Harris, patient girlfriend who was concerned about the plan of care. monica and patient family had questions about if patient was going to get anymore tests or consults regarding his anemia and current ALOC. CM discussed the plan of care that included a hem/onc consult with outpatient follow up. Treatment for UTI to be continued at SNF and PT eval and treatments. Family and girlfriend want to speak with patient attending MD for treatment plan and prognosis. CM advised them to ask patient RN to reach out to the attending to speak with or call family. CM also gave girlfriend insurance CM phone number. will follow up and update girlfriend as needed.
[2022-08-19] MEDS ORDERED: cefTRIAXone 1 GM in D5W 50 ML IV SCH (13:00)
[2022-08-19] MEDS ORDERED: FOLIC ACID 1 MG TABLET PO ONE (13:45)
[2022-08-19 14:14] LABS: BILIRUBIN,DIRECT 0.8 mg/dL (0.0-0.3)
--- NOTE | 2022-08-19 15:19 | NUR ---
LYNNETTE spoke with Ann Marie CHURCH at [facility] who approved a SNF stay of 7d due to patient current mentation. LYNNETTE faxed DC referral to [facility] f#[phone], [facility] f# [phone], [facility] f# [phone] and [facility] f# [phone]. will follow up
[2022-08-19] MEDS: MORPHINE 2 MG/ML INJ. SYRINGE IVP PRN (16:22)
--- NOTE | 2022-08-19 16:30 | NUR ---
PHYSICAL THERAPY CO-SIGN The Physical Therapy Progress Notes documented by Infection Control Nurse have been reviewed. Reviewed/Co-Signed by: Matt Diaz Documentation Done by:QUIN DAVIS Addendum: 08/19/22 at 1630 by Matt Diaz PT Amended: Links added.
[2022-08-19 17:27] VITALS: BP_SYST 112
--- NOTE | 2022-08-19 19:00 | NUR ---
Patient sleeping in bed no signs of distress noted, IV to left hand patent. All safety secured, bed in low position and call light w/in reached
[2022-08-19 20:00] VITALS: BP_SYST 120
[2022-08-20] VITALS: BP_SYST 112
[2022-08-20] MEDS: MORPHINE 2 MG/ML INJ. SYRINGE IVP PRN ×3 (00:11→12:29)
[2022-08-20 06:21] LABS: BASOPHILS # (AUTO) 0.1 K/uL (0.0-0.2); EOSINOPHILS % (AUTO) 0.2 % (0.0-4.0); HEMATOCRIT 22.2 % (36-54); HEMOGLOBIN 7.6 g/dL (14.0-18.0); LYMPHOCYTES # (AUTO) 1.1 K/uL (1.0-5.5); LYMPHOCYTES % (AUTO) 12.4 % (20.5-51.5); MEAN CORPUSCULAR HEMOGLOBIN 36 pg (27-31); MEAN CORPUSCULAR HGB CONC 35 % (32-36); MEAN CORPUSCULAR VOLUME 104 fL (79.0-98.0); MONOCYTES % (AUTO) 0.4 % (1.7-9.3); NEUTROPHILS # (AUTO) 7.6 K/uL (1.8-7.7); RED BLOOD CELL COUNT(AUTO) 2.13 MIL/uL (4.2-6.2); RED CELL DISTRIBUTION WIDTH 21.3 % (9.0-15.0); WHITE BLOOD COUNT (AUTO) 8.9 K/uL (4.8-10.8)
[2022-08-20 06:28] LABS: PLATELET COUNT (AUTO) 31 K/uL (130-430)
[2022-08-20 06:49] LABS: ALBUMIN 2.8 g/dL (3.4-4.8); BILIRUBIN,DIRECT 0.8 mg/dL (0.0-0.3); CALCIUM 8.1 mg/dL (8.4-11.0); CREATININE 0.63 mg/dL (0.55-1.30); TOTAL BILIRUBIN 2.5 mg/dL (0.0-1.0)
[2022-08-20 08:00] VITALS: BP_SYST 101
--- NOTE | 2022-08-20 08:11 | NUR ---
SETTING UP [facility] ON WILL CALL FOR MR ROJAS. HOPEFULLY TO ADILIA RAOCH
--- NOTE | 2022-08-20 08:15 | NUR ---
LYNNETTE rounded on patient at bedside. Mentation is better A/Ox2. Still forgetful.Girlfriend at bedside. DCP discussed SNF stay approved by insurance for 7 days; IV abx. [facility] will be by to eval patient for admission at 10:30. Back up SNFs are [facility] and [facility]. Sarita the girlfriend states " absolute no to [facility]!" Sarita is ok with [facility] and [facility] for now. Transportation is on will call for DC today. Sarita aware and is in agreeance.
[2022-08-20] MEDS ORDERED: FOLIC ACID 1 MG TABLET PO SCH (09:00)
[2022-08-20] MEDS: DILTIAZEM HCL 120 MG CAP.SR.24H PO SCH (09:14)
--- NOTE | 2022-08-20 10:40 | NUR ---
Wind Operations Supervisor (Dima) at bedside, talking to family regarding CT biopsy, states "radiologist need to be at bedside to consent patient/family. Radiologist not available today.
[2022-08-20 11:43] VITALS: BP_SYST 91
--- NOTE | 2022-08-20 11:46 | NUR ---
Davie from [facility] here to evaluate patient. Patient had Dr Woodruff at bedside around 0900 who ordered labs and a CT guided biopsy. Radiology needs to be present at bedside for procedure; not available today. Discharge delayed due to further procedures and labs by Dr Woodruff. [facility] will accept patient. CM to call for bed when patient medically clear for transfer
--- NOTE | 2022-08-20 12:18 | NUR ---
CM reached out to Dr Oconnor to notify of delayed DC. Dr Oconnor spoke with Dr Woodruff who told him that the biopsy was not urgent and could be done as an outpatient. Dr Woodruff to speak with patient girlfriend and family
--- NOTE | 2022-08-20 12:56 | NUR ---
Dr Oconnor notified this CM that Dr Woodruff spoke with patient girlfriend and that the CT biopsy will be scheduled on an outpatient basis. Dr Oconnor cleared patient for discharge today. Patient accepted at [facility]. room 104. Transportation arranged with [facility] [phone]. ETA 3pm. CM will let patient girlienemerson know. Will place packet on unit Addendum: 08/20/22 at 1312 by Brook Bahena RN [facility] [phone]
--- NOTE | 2022-08-20 15:55 | NUR ---
Discharge note Patient discharge to [facility] per MD order. Patient in bed with leg cross no signs of distress noted, vital signs stable. Report given via SBAR to receiving nurse Magali at facility. Additional instruction given to continue IV therapy, CBC in 2-3 days, and followup with Dr Woodruff outpatient Discharge information given to patient/edwin Ramey. Patient/Edwin verbalized understanding. Patient ID band removed. IV catheter removed, intact and dressing applied, no active bleeding. Instruction package given to [facility] personnel, patient escorted off unit via stretcher
[2022-08-20 16:04] VITALS: BP_SYST 91
== END 2022-08-20 15:55 | DRG 811 ==
LOC: SED 11:58 → STU 14:43 → SMU 08-17 22:37
PROVIDERS: ADMIT Family Medicine; ATTEND Family Medicine
PROC: 30233N1 Transfusion of Nonautologous Red Blood Cells into Peripheral Vein, Percutaneous Approach (ICD-10-PCS; principal; 2022-08-17)
DX: D64.9 Anemia, unspecified (principal); G93.41 Metabolic encephalopathy; I48.92 Unspecified atrial flutter; E87.1 Hypo-osmolality and hyponatremia; N12 Tubulo-interstitial nephritis, not specified as acute or chronic; E11.9 Type 2 diabetes mellitus without complications; R16.2 Hepatomegaly with splenomegaly, not elsewhere classified; I10 Essential (primary) hypertension; D69.6 Thrombocytopenia, unspecified; Z79.899 Other long term (current) drug therapy; Z79.4 Long term (current) use of insulin; Z79.891 Long term (current) use of opiate analgesic; Z79.01 Long term (current) use of anticoagulants
CPT/HCPCS: 36415; 70450-TC; 71045; 76376; 80048; 80053; 80076; 81000; 82247; 82248; 82607; 82728; 82746; 82962; 83037; 83540; 83550; 83605; 83615; 83735; 85007; 85025; 85027; 85610-TC; 86880-TC; 86886; 86900; 86901; 86920; 87040; 87086; 93005; 93306; 96361; 96374; 97110-GP; 97530-GP; 99291; G0378; J0696; J1630; J1956; J2060; J2270; J2405; J2543; J7060; P9021

== ENCOUNTER 2022-08-26 11:48 | Inpatient (IN) | payer BC, OTHER ==
[~2022-08-26] VITALS: Ht 188 cm; Wt 71.2 kg
[~2022-08-26 11:48] MED LIST changes: -ACET-2634 PO; -APIX5TAB PO; +DICL50TA9 PO; -ECO81 PO; +EMPA1TAB30; +GABA-529 PO; -HYDR-3917 PO; -IBUP-1969 PO; +INSU300I SQ; -LIDO1ADH71 TD; -METF-518 PO; +PRO40 PO
[2022-08-26 12:02] VITALS: BP_SYST 106; PULSE 69; RESP 16; TEMP 97.8; O2SAT 95
[2022-08-26 12:51] LABS: MEAN CORPUSCULAR HEMOGLOBIN 36 pg (27-31); MEAN CORPUSCULAR HGB CONC 34 % (32-36)
[2022-08-26 12:53] LABS: CALCIUM 8.5 mg/dL (8.4-11.0); CREATININE 0.92 mg/dL (0.55-1.30)
[2022-08-26 12:58] LABS: ALBUMIN 3.1 g/dL (3.4-4.8); TOTAL BILIRUBIN 1.6 mg/dL (0.0-1.0)
[2022-08-26 13:02] LABS: MEAN CORPUSCULAR VOLUME 105 fL (79.0-98.0); PLATELET COUNT (AUTO) 63 K/uL (130-430); RED CELL DISTRIBUTION WIDTH 21.3 % (9.0-15.0); WHITE BLOOD COUNT (AUTO) 9.6 K/uL (4.8-10.8)
[2022-08-26 13:03] LABS: HEMATOCRIT 19.9 % (36-54); HEMOGLOBIN 6.7 g/dL (14.0-18.0)
[2022-08-26 14:14] LABS: ATYPICAL LYMPHOCYTES % 6 % (0-0); BAND % (MANUAL) 15 % (0-6); BASOPHILS % (MANUAL) 0 % (0-2); EOSINOPHILS % (MANUAL) 0 % (0-7); LYMPHOCYTES % (MANUAL) 20 % (20-46); METAMYELOCYTES % 12 % (0-0); MONOCYTES % (MANUAL) 10 % (0-11)
[2022-08-26 14:15] LABS: MYELOCYTES % 2 % (0-0)
[2022-08-26 14:39] LABS: BILIRUBIN,DIRECT 0.4 mg/dL (0.0-0.3)
[2022-08-26] MEDS ORDERED: FOLIC ACID 1 MG TABLET PO ONE (15:00)
[2022-08-26 15:18] LABS: INR 1.1 (0.80-1.20); PROTHROMBIN TIME 11.4 SECS (9.5-12.5)
[2022-08-26] MEDS ORDERED: PANTOPRAZOLE SODIUM 40 MG TAB PO ONE (15:45)
[2022-08-26] MEDS ORDERED: DILTIAZEM HCL 120 MG CAP.SR.24H PO ONE (15:45)
[2022-08-26 19:40] VITALS: BP_SYST 96; PULSE 86; RESP 18; TEMP 97.8; O2SAT 100
[2022-08-26 20:25] VITALS: BP_SYST 96; PULSE 86; RESP 18; TEMP 97.8; O2SAT 100
[2022-08-26] MEDS: LORazepam 2 MG/ML VIAL IVP PRN (21:45)
[2022-08-26] MEDS ORDERED: QUEtiapine FUMARATE 25 MG TABLET PO ONE (22:00)
[2022-08-26 22:17] LABS: CALCIUM 8.2 mg/dL (8.4-11.0); CREATININE 0.81 mg/dL (0.55-1.30)
[2022-08-26 22:45] LABS: BILIRUBIN,URINE NEGATIVE (NEGATIVE); CLARITY/URINE CLOUDY (CLEAR); COLOR,URINE YELLOW (YELLOW); GLUCOSE,URINE NEGATIVE (NEGATIVE); KETONES,URINE NEGATIVE (NEGATIVE); PROTEIN URINE NEGATIVE (NEGATIVE)
[2022-08-26 22:46] LABS: BLOOD, URINE 2+ (NEGATIVE); LEUKOCYTE ESTERASE ,URINE TRACE (NEGATIVE); NITRITE, URINE NEGATIVE (NEGATIVE)
[2022-08-26] MEDS ORDERED: cefTRIAXone 1 GM IVPB PREMIX 50 ML IV ONE (22:51)
[2022-08-26 23:14] LABS: BACTERIA,URINE FEW /HPF (None Seen)
[2022-08-26] MEDS: NACL 0.9% 1,000 ML IV SCH (23:50)
[2022-08-26] MEDS: cefTRIAXone 1 GM in D5W 50 ML IV SCH (23:51)
[2022-08-27] VITALS (7 sets, daily range): BP systolic 110–129; PULSE 81–118; RESP 16–20; TEMP 97–99.2; O2SAT 93–99
[2022-08-27] MEDS: CITALOPRAM HYDROBROMIDE 20 MG TABLET PO SCH ×2 (00:19→20:54)
[2022-08-27] MEDS: LORazepam 2 MG/ML VIAL IVP PRN ×3 (01:57→23:16)
[2022-08-27 05:46] LABS: BASOPHILS # (AUTO) 0.1 K/uL (0.0-0.2); BASOPHILS % (AUTO) 0.9 % (0.0-2.0); EOSINOPHILS # (AUTO) 0.2 K/uL (0.0-0.4); EOSINOPHILS % (AUTO) 1.9 % (0.0-4.0); HEMOGLOBIN 7.2 g/dL (14.0-18.0); LYMPHOCYTES % (AUTO) 11.7 % (20.5-51.5); MEAN CORPUSCULAR HEMOGLOBIN 34 pg (27-31); MEAN CORPUSCULAR HGB CONC 34 % (32-36); MEAN CORPUSCULAR VOLUME 101 fL (79.0-98.0); MONOCYTES # (AUTO) 0.1 K/uL (0.0-1.0); NEUTROPHILS # (AUTO) 7.2 K/uL (1.8-7.7); NEUTROPHILS % (AUTO) 84.5 % (40.0-70.0); PLATELET COUNT (AUTO) 50 K/uL (130-430); RED BLOOD CELL COUNT(AUTO) 2.11 MIL/uL (4.2-6.2); RED CELL DISTRIBUTION WIDTH 20.6 % (9.0-15.0); WHITE BLOOD COUNT (AUTO) 8.5 K/uL (4.8-10.8)
[2022-08-27 05:48] LABS: INR 1.1 (0.80-1.20)
[2022-08-27 05:49] LABS: ALBUMIN 2.9 g/dL (3.4-4.8); CALCIUM 8.4 mg/dL (8.4-11.0); CREATININE 0.67 mg/dL (0.55-1.30); TOTAL BILIRUBIN 1.3 mg/dL (0.0-1.0)
[2022-08-27 05:54] LABS: HEMATOCRIT 21.3 % (36-54)
[2022-08-27] MEDS: NACL 0.9% 1,000 ML IV SCH ×3 (07:55→21:02)
[2022-08-27] MEDS: DILTIAZEM HCL 120 MG CAP.SR.24H PO SCH (10:05)
[2022-08-27] MEDS: PANTOPRAZOLE SODIUM 40 MG TAB PO SCH (10:06)
[2022-08-27] MEDS: FOLIC ACID 1 MG TABLET PO SCH (10:06)
[2022-08-27 14:17] LABS: BASOPHILS # (AUTO) 0.1 K/uL (0.0-0.2); BASOPHILS % (AUTO) 0.9 % (0.0-2.0); LYMPHOCYTES # (AUTO) 0.9 K/uL (1.0-5.5); MONOCYTES # (AUTO) 0.1 K/uL (0.0-1.0)
[2022-08-27 14:21] LABS: EOSINOPHILS % (AUTO) 9.8 % (0.0-4.0); HEMATOCRIT 22.4 % (36-54); HEMOGLOBIN 7.7 g/dL (14.0-18.0); LYMPHOCYTES % (AUTO) 9.4 % (20.5-51.5); MEAN CORPUSCULAR HEMOGLOBIN 35 pg (27-31); MEAN CORPUSCULAR HGB CONC 34 % (32-36); MEAN CORPUSCULAR VOLUME 101 fL (79.0-98.0); MONOCYTES % (AUTO) 0.9 % (1.7-9.3); NEUTROPHILS # (AUTO) 7.9 K/uL (1.8-7.7); RED BLOOD CELL COUNT(AUTO) 2.21 MIL/uL (4.2-6.2); RED CELL DISTRIBUTION WIDTH 20.8 % (9.0-15.0)
[2022-08-27 14:22] LABS: PLATELET COUNT (AUTO) 49 K/uL (130-430)
[2022-08-27] MEDS: QUEtiapine FUMARATE 25 MG TABLET PO SCH (20:54)
[2022-08-27] MEDS: cefTRIAXone 1 GM in D5W 50 ML IV SCH (21:01)
[2022-08-28 00:33] VITALS: BP_SYST 128; PULSE 67; RESP 20; TEMP 97.6; O2SAT 96
[2022-08-28] MEDS: LORazepam 2 MG/ML VIAL IVP PRN ×2 (04:33→07:47)
[2022-08-28 07:25] LABS: MEAN CORPUSCULAR HEMOGLOBIN 34 pg (27-31); MEAN CORPUSCULAR HGB CONC 34 % (32-36); MEAN CORPUSCULAR VOLUME 101 fL (79.0-98.0); RED BLOOD CELL COUNT(AUTO) 2.06 MIL/uL (4.2-6.2); RED CELL DISTRIBUTION WIDTH 20.1 % (9.0-15.0); WHITE BLOOD COUNT (AUTO) 11.2 K/uL (4.8-10.8)
[2022-08-28 07:42] LABS: CALCIUM 8.1 mg/dL (8.4-11.0); CREATININE 0.62 mg/dL (0.55-1.30)
[2022-08-28 08:00] VITALS: BP_SYST 124; PULSE 69; RESP 19; TEMP 97; O2SAT 98
[2022-08-28 08:41] LABS: HEMOGLOBIN 6.9 g/dL (14.0-18.0)
[2022-08-28 08:42] LABS: HEMATOCRIT 20.7 % (36-54); PLATELET COUNT (AUTO) 44 K/uL (130-430)
[2022-08-28] MEDS: PANTOPRAZOLE SODIUM 40 MG TAB PO SCH (09:00)
[2022-08-28] MEDS: DILTIAZEM HCL 120 MG CAP.SR.24H PO SCH (09:00)
[2022-08-28] MEDS: FOLIC ACID 1 MG TABLET PO SCH (09:00)
[2022-08-28 12:00] VITALS: BP_SYST 108; PULSE 71; RESP 20; TEMP 97.6; O2SAT 91
[2022-08-28 12:30] LABS: BAND % (MANUAL) 18 % (0-6)
[2022-08-28 12:31] LABS: ATYPICAL LYMPHOCYTES % 7 % (0-0); BASOPHILS % (MANUAL) 0 % (0-2); EOSINOPHILS % (MANUAL) 0 % (0-7); LYMPHOCYTES % (MANUAL) 17 % (20-46); METAMYELOCYTES % 9 % (0-0); MONOCYTES % (MANUAL) 12 % (0-11); MYELOCYTES % 2 % (0-0)
[2022-08-28] MEDS ORDERED: MIDAZOLAM HCL 5 MG/5 ML VIAL ONE (12:48)
[2022-08-28] MEDS ORDERED: fentaNYL CITRATE/PF 100 MCG/2 ML AMP ONE (12:49)
[2022-08-28] MEDS ORDERED: ONDANSETRON HCL 4 MG/2 ML VIAL ONE (12:49)
[2022-08-28] MEDS ORDERED: LIDOCAINE 1%, 20 ML MDV 20 ML ONE (12:50)
[2022-08-28] MEDS: NACL 0.9% 1,000 ML IV SCH (14:14)
[2022-08-28 16:00] VITALS: BP_SYST 113; BP_SYST 124; PULSE 103; PULSE 74; RESP 18; RESP 21; TEMP 97.6; TEMP 98.4; O2SAT 90; O2SAT 96
[2022-08-28 20:10] VITALS: BP_SYST 113; PULSE 74; RESP 20; TEMP 98.9; O2SAT 98
[2022-08-28] MEDS: CITALOPRAM HYDROBROMIDE 20 MG TABLET PO SCH (22:13)
[2022-08-28] MEDS: QUEtiapine FUMARATE 25 MG TABLET PO SCH (22:15)
[2022-08-28] MEDS: cefTRIAXone 1 GM in D5W 50 ML IV SCH (22:16)
[2022-08-29] VITALS: BP_SYST 129; PULSE 101; RESP 16; TEMP 98.9; O2SAT 99
[2022-08-29] MEDS: NACL 0.9% 1,000 ML IV SCH ×4 (00:58→21:17)
[2022-08-29] MEDS: LORazepam 2 MG/ML VIAL IVP PRN ×2 (02:28→10:45)
[2022-08-29 03:57] LABS: BILIRUBIN,URINE 1+ (NEGATIVE); BLOOD, URINE 3+ (NEGATIVE); CLARITY/URINE CLEAR (CLEAR); COLOR,URINE YELLOW (YELLOW); GLUCOSE,URINE NEGATIVE (NEGATIVE); KETONES,URINE 1+ (NEGATIVE); LEUKOCYTE ESTERASE ,URINE NEGATIVE (NEGATIVE); NITRITE, URINE NEGATIVE (NEGATIVE); PROTEIN URINE NEGATIVE (NEGATIVE)
[2022-08-29 04:00] VITALS: BP_SYST 118; PULSE 98; RESP 18; TEMP 98.2; O2SAT 98
[2022-08-29 04:01] LABS: BACTERIA,URINE FEW /HPF (None Seen)
[2022-08-29 07:32] LABS: BASOPHILS # (AUTO) 0.1 K/uL (0.0-0.2); BASOPHILS % (AUTO) 0.7 % (0.0-2.0); EOSINOPHILS % (AUTO) 0.2 % (0.0-4.0); HEMATOCRIT 25.9 % (36-54); HEMOGLOBIN 8.9 g/dL (14.0-18.0); LYMPHOCYTES % (AUTO) 6.8 % (20.5-51.5); MEAN CORPUSCULAR HEMOGLOBIN 34 pg (27-31); MEAN CORPUSCULAR HGB CONC 34 % (32-36); MEAN CORPUSCULAR VOLUME 99 fL (79.0-98.0); MONOCYTES # (AUTO) 0.1 K/uL (0.0-1.0); NEUTROPHILS # (AUTO) 12.8 K/uL (1.8-7.7); PLATELET COUNT (AUTO) 52 K/uL (130-430); RED BLOOD CELL COUNT(AUTO) 2.63 MIL/uL (4.2-6.2); RED CELL DISTRIBUTION WIDTH 18.9 % (9.0-15.0)
[2022-08-29 07:45] VITALS: BP_SYST 98; PULSE 103; RESP 18; TEMP 97.7; O2SAT 98
[2022-08-29 07:55] LABS: INR 1.2 (0.80-1.20)
[2022-08-29 08:06] LABS: ALBUMIN 2.8 g/dL (3.4-4.8); CALCIUM 8.5 mg/dL (8.4-11.0); CREATININE 0.57 mg/dL (0.55-1.30); TOTAL BILIRUBIN 2.1 mg/dL (0.0-1.0)
[2022-08-29 08:11] LABS: NEUTROPHILS % (AUTO) 91.3 % (40.0-70.0)
[2022-08-29] MEDS: DILTIAZEM HCL 120 MG CAP.SR.24H PO SCH (09:27)
[2022-08-29] MEDS: PANTOPRAZOLE SODIUM 40 MG TAB PO SCH (09:27)
[2022-08-29] MEDS: FOLIC ACID 1 MG TABLET PO SCH (09:28)
[2022-08-29 11:07] LABS: HEPATITIS B CORE AB, TOTAL Negative (Negative); HEPATITIS B SURFACE AG Negative (Negative); HEPATITIS C VIRUS AB Non Reactive (Non Reactive)
[2022-08-29 11:37] VITALS: BP_SYST 99; PULSE 110; RESP 18; TEMP 97.9; O2SAT 96
[2022-08-29] MEDS ORDERED: NALOXONE HCL 0.4 MG/ML AMP (NARCAN) IVP PRN (14:30)
[2022-08-29] MEDS: HYDROcodone/ACETAMIN 5-325 MG TAB (NORCO/ VICODIN) PO PRN ×2 (14:34→18:28)
[2022-08-29 17:10] VITALS: BP_SYST 124; PULSE 105; RESP 17; TEMP 98; O2SAT 95
[2022-08-29 20:00] VITALS: BP_SYST 119; PULSE 116; RESP 12; TEMP 98.2; O2SAT 96
[2022-08-29] MEDS: CITALOPRAM HYDROBROMIDE 20 MG TABLET PO SCH (21:17)
[2022-08-29] MEDS: QUEtiapine FUMARATE 25 MG TABLET PO SCH (21:17)
[2022-08-29] MEDS: cefTRIAXone 1 GM in D5W 50 ML IV SCH (21:32)
[2022-08-29] MEDS: INSULIN REGULAR, HUMAN 100 UNITS/ML, 3 ML VIAL (humuLIN R) SUBCUT PRN (21:39)
[2022-08-30 00:30] VITALS: BP_SYST 122; PULSE 86; RESP 18; TEMP 98.2; O2SAT 96
[2022-08-30] MEDS: HYDROcodone/ACETAMIN 5-325 MG TAB (NORCO/ VICODIN) PO PRN ×4 (06:19→20:14)
[2022-08-30 06:39] LABS: CALCIUM 8.2 mg/dL (8.4-11.0); CREATININE 0.64 mg/dL (0.55-1.30)
[2022-08-30 07:38] LABS: BASOPHILS # (AUTO) 0.1 K/uL (0.0-0.2); BASOPHILS % (AUTO) 0.6 % (0.0-2.0); EOSINOPHILS % (AUTO) 8.3 % (0.0-4.0); HEMATOCRIT 23.1 % (36-54); HEMOGLOBIN 7.6 g/dL (14.0-18.0); LYMPHOCYTES # (AUTO) 1.1 K/uL (1.0-5.5); LYMPHOCYTES % (AUTO) 9.5 % (20.5-51.5); MEAN CORPUSCULAR HEMOGLOBIN 33 pg (27-31); MEAN CORPUSCULAR HGB CONC 33 % (32-36); MEAN CORPUSCULAR VOLUME 98 fL (79.0-98.0); MONOCYTES # (AUTO) 0.1 K/uL (0.0-1.0); MONOCYTES % (AUTO) 0.7 % (1.7-9.3); NEUTROPHILS # (AUTO) 9.3 K/uL (1.8-7.7); RED BLOOD CELL COUNT(AUTO) 2.34 MIL/uL (4.2-6.2); RED CELL DISTRIBUTION WIDTH 19.1 % (9.0-15.0); WHITE BLOOD COUNT (AUTO) 11.6 K/uL (4.8-10.8)
[2022-08-30 07:52] LABS: PLATELET COUNT (AUTO) 49 K/uL (130-430)
[2022-08-30 08:00] VITALS: BP_SYST 107; PULSE 111; RESP 18; TEMP 99.2; O2SAT 95; O2SAT 96
[2022-08-30 08:00] LABS: ERYTHROCYTE SEDIMENTATION RATE 11 MM/HR (0-15)
[2022-08-30] MEDS: FOLIC ACID 1 MG TABLET PO SCH (09:00)
[2022-08-30 10:03] LABS: NEUTROPHILS % (AUTO) 80.9 % (40.0-70.0)
[2022-08-30] MEDS: PANTOPRAZOLE SODIUM 40 MG TAB PO SCH (10:33)
[2022-08-30] MEDS: DILTIAZEM HCL 120 MG CAP.SR.24H PO SCH (10:34)
[2022-08-30] MEDS: NACL 0.9% 1,000 ML IV SCH ×2 (10:41→21:58)
[2022-08-30] MEDS: LORazepam 2 MG/ML VIAL IVP PRN (13:41)
[2022-08-30 14:07] LABS: ANTI NUCLEAR AB WITH REFLEX Negative (Negative)
[2022-08-30 17:55] VITALS: BP_SYST 110; PULSE 100; RESP 18; TEMP 99.2; O2SAT 96
[2022-08-30] MEDS: INSULIN REGULAR, HUMAN 100 UNITS/ML, 3 ML VIAL (humuLIN R) SUBCUT PRN (18:55)
[2022-08-30] MEDS: CITALOPRAM HYDROBROMIDE 20 MG TABLET PO SCH (21:42)
[2022-08-30] MEDS: CEFEPIME 2 GM in D5W 100 ML IV SCH (21:42)
[2022-08-30] MEDS: QUEtiapine FUMARATE 25 MG TABLET PO SCH (21:42)
[2022-08-31] VITALS (7 sets, daily range): BP systolic 113–123; PULSE 96–104; RESP 17–20; TEMP 97.5–98.4; O2SAT 96–100
[2022-08-31] MEDS: HYDROcodone/ACETAMIN 5-325 MG TAB (NORCO/ VICODIN) PO PRN ×3 (05:50→16:41)
[2022-08-31 08:56] LABS: BASOPHILS # (AUTO) 0.1 K/uL (0.0-0.2); BASOPHILS % (AUTO) 0.6 % (0.0-2.0); EOSINOPHILS % (AUTO) 0.3 % (0.0-4.0); HEMOGLOBIN 7.2 g/dL (14.0-18.0); LYMPHOCYTES % (AUTO) 7.2 % (20.5-51.5); MEAN CORPUSCULAR HEMOGLOBIN 33 pg (27-31); MEAN CORPUSCULAR HGB CONC 34 % (32-36); MEAN CORPUSCULAR VOLUME 98 fL (79.0-98.0); MONOCYTES # (AUTO) 0.1 K/uL (0.0-1.0); MONOCYTES % (AUTO) 0.6 % (1.7-9.3); NEUTROPHILS # (AUTO) 12.2 K/uL (1.8-7.7); NEUTROPHILS % (AUTO) 91.3 % (40.0-70.0); RED BLOOD CELL COUNT(AUTO) 2.17 MIL/uL (4.2-6.2); RED CELL DISTRIBUTION WIDTH 18.3 % (9.0-15.0); WHITE BLOOD COUNT (AUTO) 13.4 K/uL (4.8-10.8)
[2022-08-31] MEDS: FOLIC ACID 1 MG TABLET PO SCH (09:00)
[2022-08-31 09:01] LABS: ALBUMIN 2.5 g/dL (3.4-4.8); CALCIUM 8.2 mg/dL (8.4-11.0); CREATININE 0.59 mg/dL (0.55-1.30); PHOSPHORUS 3.8 mg/dL (2.7-4.5); TOTAL BILIRUBIN 1.7 mg/dL (0.0-1.0)
[2022-08-31] MEDS: CEFEPIME 2 GM in D5W 100 ML IV SCH ×2 (09:01→20:40)
[2022-08-31] MEDS: PANTOPRAZOLE SODIUM 40 MG TAB PO SCH (09:02)
[2022-08-31] MEDS: DILTIAZEM HCL 120 MG CAP.SR.24H PO SCH (09:02)
[2022-08-31 09:08] LABS: HEMATOCRIT 21.3 % (36-54); PLATELET COUNT (AUTO) 44 K/uL (130-430)
[2022-08-31] MEDS: INSULIN REGULAR, HUMAN 100 UNITS/ML, 3 ML VIAL (humuLIN R) SUBCUT PRN ×2 (11:19→21:59)
[2022-08-31] MEDS: NACL 0.9% 1,000 ML IV SCH ×2 (11:20→21:30)
[2022-08-31] MEDS: LORazepam 2 MG/ML VIAL IVP PRN (14:35)
[2022-08-31] MEDS: CITALOPRAM HYDROBROMIDE 20 MG TABLET PO SCH (20:49)
[2022-08-31] MEDS: QUEtiapine FUMARATE 25 MG TABLET PO SCH (20:50)
[2022-09-01 00:16] VITALS: BP_SYST 121; PULSE 96; RESP 16; TEMP 98.2; O2SAT 99
[2022-09-01] MEDS: LORazepam 2 MG/ML VIAL IVP PRN ×4 (00:56→20:34)
[2022-09-01 06:54] LABS: MEAN CORPUSCULAR HEMOGLOBIN 32 pg (27-31); MEAN CORPUSCULAR HGB CONC 33 % (32-36); MEAN CORPUSCULAR VOLUME 99 fL (79.0-98.0); RED BLOOD CELL COUNT(AUTO) 2.16 MIL/uL (4.2-6.2); RED CELL DISTRIBUTION WIDTH 18.1 % (9.0-15.0); WHITE BLOOD COUNT (AUTO) 11.9 K/uL (4.8-10.8)
[2022-09-01 06:59] LABS: ALBUMIN 2.3 g/dL (3.4-4.8); CALCIUM 8.3 mg/dL (8.4-11.0); CREATININE 0.61 mg/dL (0.55-1.30); PHOSPHORUS 3.8 mg/dL (2.7-4.5); TOTAL BILIRUBIN 1.4 mg/dL (0.0-1.0)
[2022-09-01 07:02] LABS: HEMATOCRIT 21.3 % (36-54); HEMOGLOBIN 6.9 g/dL (14.0-18.0); PLATELET COUNT (AUTO) 46 K/uL (130-430)
[2022-09-01 08:30] VITALS: O2SAT 95
[2022-09-01 08:45] LABS: ATYPICAL LYMPHOCYTES % 5 % (0-0); BAND % (MANUAL) 8 % (0-6); BASOPHILS % (MANUAL) 0 % (0-2); EOSINOPHILS % (MANUAL) 0 % (0-7); LYMPHOCYTES % (MANUAL) 15 % (20-46); METAMYELOCYTES % 9 % (0-0); MONOCYTES % (MANUAL) 6 % (0-11); MYELOCYTES % 6 % (0-0)
[2022-09-01] MEDS: PANTOPRAZOLE SODIUM 40 MG TAB PO SCH (09:03)
[2022-09-01] MEDS: FOLIC ACID 1 MG TABLET PO SCH (09:03)
[2022-09-01] MEDS: NACL 0.9% 1,000 ML IV SCH ×2 (09:04→16:46)
[2022-09-01] MEDS: DILTIAZEM HCL 120 MG CAP.SR.24H PO SCH (09:04)
[2022-09-01] MEDS: CEFEPIME 2 GM in D5W 100 ML IV SCH ×2 (09:06→20:34)
[2022-09-01] MEDS: HYDROcodone/ACETAMIN 5-325 MG TAB (NORCO/ VICODIN) PO PRN ×2 (09:50→16:46)
[2022-09-01] MEDS: INSULIN REGULAR, HUMAN 100 UNITS/ML, 3 ML VIAL (humuLIN R) SUBCUT PRN ×2 (11:25→21:49)
[2022-09-01 11:39] VITALS: BP_SYST 144; PULSE 107; RESP 18; TEMP 99.1; O2SAT 98
[2022-09-01 15:06] LABS: ANTI-SMOOTH MUSCLE AB 14 Units (0-19)
[2022-09-01 17:40] VITALS: BP_SYST 142; PULSE 102; RESP 19; TEMP 99; O2SAT 97
[2022-09-01 20:00] VITALS: BP_SYST 136; PULSE 105; RESP 18; TEMP 98.8; O2SAT 96; O2SAT 98
[2022-09-01] MEDS: CITALOPRAM HYDROBROMIDE 20 MG TABLET PO SCH (20:34)
[2022-09-01] MEDS: QUEtiapine FUMARATE 25 MG TABLET PO SCH (20:34)
[2022-09-02 00:26] VITALS: BP_SYST 126; PULSE 113; RESP 18; TEMP 98.7; O2SAT 92
[2022-09-02] MEDS: NACL 0.9% 1,000 ML IV SCH ×3 (04:57→23:30)
[2022-09-02] MEDS: LORazepam 2 MG/ML VIAL IVP PRN (04:57)
[2022-09-02 06:23] LABS: BASOPHILS # (AUTO) 0.1 K/uL (0.0-0.2); BASOPHILS % (AUTO) 0.6 % (0.0-2.0); EOSINOPHILS # (AUTO) 1.1 K/uL (0.0-0.4); EOSINOPHILS % (AUTO) 8.6 % (0.0-4.0); HEMATOCRIT 26.2 % (36-54); HEMOGLOBIN 8.6 g/dL (14.0-18.0); LYMPHOCYTES # (AUTO) 1.1 K/uL (1.0-5.5); LYMPHOCYTES % (AUTO) 8.2 % (20.5-51.5); MEAN CORPUSCULAR HEMOGLOBIN 32 pg (27-31); MEAN CORPUSCULAR HGB CONC 33 % (32-36); MEAN CORPUSCULAR VOLUME 98 fL (79.0-98.0); MONOCYTES # (AUTO) 0.1 K/uL (0.0-1.0); MONOCYTES % (AUTO) 0.8 % (1.7-9.3); NEUTROPHILS # (AUTO) 10.9 K/uL (1.8-7.7); RED BLOOD CELL COUNT(AUTO) 2.66 MIL/uL (4.2-6.2); RED CELL DISTRIBUTION WIDTH 18.4 % (9.0-15.0); WHITE BLOOD COUNT (AUTO) 13.3 K/uL (4.8-10.8)
[2022-09-02 07:02] LABS: CALCIUM 8.3 mg/dL (8.4-11.0); CREATININE 0.56 mg/dL (0.55-1.30)
[2022-09-02 07:45] LABS: NEUTROPHILS % (AUTO) 81.8 % (40.0-70.0); PLATELET COUNT (AUTO) 49 K/uL (130-430)
[2022-09-02 07:51] VITALS: BP_SYST 143; PULSE 107; RESP 16; TEMP 98.6; O2SAT 95
[2022-09-02] MEDS: FOLIC ACID 1 MG TABLET PO SCH (09:43)
[2022-09-02] MEDS: PANTOPRAZOLE SODIUM 40 MG TAB PO SCH (09:43)
[2022-09-02] MEDS: HYDROcodone/ACETAMIN 5-325 MG TAB (NORCO/ VICODIN) PO PRN ×2 (09:44→18:50)
[2022-09-02] MEDS: DILTIAZEM HCL 120 MG CAP.SR.24H PO SCH (09:44)
[2022-09-02] MEDS: CEFEPIME 2 GM in D5W 100 ML IV SCH ×2 (09:45→20:40)
[2022-09-02] MEDS: INSULIN REGULAR, HUMAN 100 UNITS/ML, 3 ML VIAL (humuLIN R) SUBCUT PRN ×2 (11:46→21:02)
[2022-09-02 12:00] VITALS: BP_SYST 127; PULSE 100; RESP 16; TEMP 97.3; O2SAT 97
[2022-09-02 16:00] VITALS: BP_SYST 129; PULSE 110; RESP 16; TEMP 98.6; O2SAT 97
[2022-09-02] MEDS: EPOETIN ALFA-EPBX 4,000 UNITS/ML VIAL SUBCUT SCH (17:12)
[2022-09-02 19:00] VITALS: BP_SYST 133; PULSE 118; RESP 12; TEMP 99.4; O2SAT 95
[2022-09-02 20:00] VITALS: BP_SYST 133; PULSE 118; RESP 12; TEMP 99.4; O2SAT 95
[2022-09-02] MEDS: CITALOPRAM HYDROBROMIDE 20 MG TABLET PO SCH (20:42)
[2022-09-02] MEDS: QUEtiapine FUMARATE 25 MG TABLET PO SCH (20:42)
[2022-09-03 01:33] VITALS: BP_SYST 117; PULSE 110; RESP 17; TEMP 97.8; O2SAT 97
[2022-09-03] MEDS: NACL 0.9% 1,000 ML IV SCH ×2 (03:31→21:23)
[2022-09-03] MEDS: LORazepam 2 MG/ML VIAL IVP PRN (03:44)
[2022-09-03 07:03] LABS: BASOPHILS # (AUTO) 0.1 K/uL (0.0-0.2); BASOPHILS % (AUTO) 0.4 % (0.0-2.0); HEMATOCRIT 24.3 % (36-54); HEMOGLOBIN 7.9 g/dL (14.0-18.0); LYMPHOCYTES # (AUTO) 1.1 K/uL (1.0-5.5); MEAN CORPUSCULAR HEMOGLOBIN 32 pg (27-31); MEAN CORPUSCULAR HGB CONC 33 % (32-36); MEAN CORPUSCULAR VOLUME 98 fL (79.0-98.0); MONOCYTES # (AUTO) 0.1 K/uL (0.0-1.0); MONOCYTES % (AUTO) 0.6 % (1.7-9.3); NEUTROPHILS # (AUTO) 17.4 K/uL (1.8-7.7); PLATELET COUNT (AUTO) 51 K/uL (130-430); RED BLOOD CELL COUNT(AUTO) 2.48 MIL/uL (4.2-6.2); RED CELL DISTRIBUTION WIDTH 17.9 % (9.0-15.0); WHITE BLOOD COUNT (AUTO) 18.7 K/uL (4.8-10.8)
[2022-09-03 07:26] LABS: ERYTHROCYTE SEDIMENTATION RATE 18 MM/HR (0-15)
[2022-09-03 07:28] LABS: CALCIUM 8.5 mg/dL (8.4-11.0); CREATININE 0.6 mg/dL (0.55-1.30)
[2022-09-03 07:52] VITALS: BP_SYST 120; PULSE 110; RESP 18; TEMP 98.2; O2SAT 95
[2022-09-03] MEDS: FOLIC ACID 1 MG TABLET PO SCH (08:50)
[2022-09-03] MEDS: DILTIAZEM HCL 120 MG CAP.SR.24H PO SCH (08:50)
[2022-09-03] MEDS: PANTOPRAZOLE SODIUM 40 MG TAB PO SCH (08:50)
[2022-09-03] MEDS: HYDROcodone/ACETAMIN 5-325 MG TAB (NORCO/ VICODIN) PO PRN ×2 (08:50→16:02)
[2022-09-03] MEDS: CEFEPIME 2 GM in D5W 100 ML IV SCH ×2 (08:52→21:22)
[2022-09-03 10:34] VITALS: BP_SYST 112; PULSE 102; RESP 17; TEMP 97.4; O2SAT 97
[2022-09-03] MEDS: INSULIN REGULAR, HUMAN 100 UNITS/ML, 3 ML VIAL (humuLIN R) SUBCUT PRN ×2 (11:40→21:32)
[2022-09-03] MEDS: FLUCONAZOLE 200 mg/ NS 100 ML IV SCH (12:49)
[2022-09-03 17:50] VITALS: BP_SYST 140; PULSE 98; RESP 17; TEMP 97.9; O2SAT 97
[2022-09-03 20:00] VITALS: BP_SYST 130; PULSE 118; RESP 20; TEMP 98.7; O2SAT 96
[2022-09-03] MEDS: QUEtiapine FUMARATE 25 MG TABLET PO SCH (21:16)
[2022-09-03] MEDS: CITALOPRAM HYDROBROMIDE 20 MG TABLET PO SCH (21:16)
[2022-09-04 01:38] VITALS: BP_SYST 120; PULSE 110; RESP 18; TEMP 98.4; O2SAT 95
[2022-09-04] MEDS: LORazepam 2 MG/ML VIAL IVP PRN ×2 (02:40→08:25)
[2022-09-04] MEDS: HYDROcodone/ACETAMIN 5-325 MG TAB (NORCO/ VICODIN) PO PRN ×3 (05:50→22:37)
[2022-09-04] MEDS: NACL 0.9% 1,000 ML IV SCH (05:50)
[2022-09-04 06:22] LABS: BASOPHILS # (AUTO) 0.1 K/uL (0.0-0.2); BASOPHILS % (AUTO) 0.6 % (0.0-2.0); EOSINOPHILS # (AUTO) 0.1 K/uL (0.0-0.4); EOSINOPHILS % (AUTO) 0.3 % (0.0-4.0); HEMATOCRIT 23.3 % (36-54); HEMOGLOBIN 7.6 g/dL (14.0-18.0); LYMPHOCYTES # (AUTO) 1.1 K/uL (1.0-5.5); LYMPHOCYTES % (AUTO) 5.1 % (20.5-51.5); MEAN CORPUSCULAR HEMOGLOBIN 32 pg (27-31); MEAN CORPUSCULAR HGB CONC 33 % (32-36); MEAN CORPUSCULAR VOLUME 99 fL (79.0-98.0); MONOCYTES # (AUTO) 0.2 K/uL (0.0-1.0); MONOCYTES % (AUTO) 0.7 % (1.7-9.3); NEUTROPHILS # (AUTO) 19.6 K/uL (1.8-7.7); NEUTROPHILS % (AUTO) 93.3 % (40.0-70.0); RED BLOOD CELL COUNT(AUTO) 2.37 MIL/uL (4.2-6.2)
[2022-09-04 06:37] LABS: CALCIUM 8.3 mg/dL (8.4-11.0); CREATININE 0.65 mg/dL (0.55-1.30)
[2022-09-04 06:40] LABS: ERYTHROCYTE SEDIMENTATION RATE 10 MM/HR (0-15)
[2022-09-04 06:47] LABS: PLATELET COUNT (AUTO) 48 K/uL (130-430)
[2022-09-04 08:00] VITALS: BP_SYST 146; PULSE 107; RESP 18; TEMP 98.3; O2SAT 98
[2022-09-04] MEDS: FOLIC ACID 1 MG TABLET PO SCH (08:21)
[2022-09-04] MEDS: PANTOPRAZOLE SODIUM 40 MG TAB PO SCH (08:21)
[2022-09-04] MEDS: DILTIAZEM HCL 120 MG CAP.SR.24H PO SCH (08:24)
[2022-09-04] MEDS: CEFEPIME 2 GM in D5W 100 ML IV SCH (08:31)
[2022-09-04] MEDS ORDERED: QUEtiapine FUMARATE 25 MG TABLET PO ONE (11:00)
[2022-09-04 12:11] VITALS: BP_SYST 115; PULSE 77; RESP 16; TEMP 98; O2SAT 99
[2022-09-04] MEDS: FLUCONAZOLE 200 mg/ NS 100 ML IV SCH (12:27)
[2022-09-04] MEDS: NORMAL SALINE 5 ML DISP.SYRIN IVF SCH ×2 (14:00→22:33)
[2022-09-04 16:15] VITALS: BP_SYST 110; PULSE 90; RESP 16; TEMP 97.5; O2SAT 96
[2022-09-04] MEDS: EPOETIN ALFA-EPBX 4,000 UNITS/ML VIAL SUBCUT SCH (17:21)
[2022-09-04 19:00] VITALS: BP_SYST 130; PULSE 81; RESP 18; TEMP 98.2; O2SAT 93
[2022-09-04] MEDS: MIRTAZAPINE 15 MG TABLET PO SCH (21:00)
[2022-09-04] MEDS: CITALOPRAM HYDROBROMIDE 20 MG TABLET PO SCH (22:32)
[2022-09-04] MEDS: QUEtiapine FUMARATE 25 MG TABLET PO SCH (22:32)
[2022-09-05] MEDS: CEFEPIME 2 GM in D5W 100 ML IV SCH ×3 (00:11→21:46)
[2022-09-05 01:08] VITALS: BP_SYST 115; PULSE 97; RESP 18; TEMP 98; O2SAT 98
[2022-09-05 05:32] LABS: BASOPHILS # (AUTO) 0.2 K/uL (0.0-0.2); BASOPHILS % (AUTO) 0.7 % (0.0-2.0); EOSINOPHILS # (AUTO) 0.2 K/uL (0.0-0.4); EOSINOPHILS % (AUTO) 0.8 % (0.0-4.0); HEMATOCRIT 24.6 % (36-54); LYMPHOCYTES # (AUTO) 1.3 K/uL (1.0-5.5); LYMPHOCYTES % (AUTO) 5.2 % (20.5-51.5); MEAN CORPUSCULAR HEMOGLOBIN 32 pg (27-31); MEAN CORPUSCULAR HGB CONC 32 % (32-36); MEAN CORPUSCULAR VOLUME 98 fL (79.0-98.0); MONOCYTES # (AUTO) 0.2 K/uL (0.0-1.0); MONOCYTES % (AUTO) 0.7 % (1.7-9.3); NEUTROPHILS # (AUTO) 22.6 K/uL (1.8-7.7); NEUTROPHILS % (AUTO) 92.6 % (40.0-70.0); PLATELET COUNT (AUTO) 52 K/uL (130-430); RED CELL DISTRIBUTION WIDTH 18.3 % (9.0-15.0); WHITE BLOOD COUNT (AUTO) 24.4 K/uL (4.8-10.8)
[2022-09-05 05:37] LABS: ERYTHROCYTE SEDIMENTATION RATE 8 MM/HR (0-15)
[2022-09-05 05:52] LABS: ALBUMIN 2.7 g/dL (3.4-4.8); CALCIUM 8.6 mg/dL (8.4-11.0); CREATININE 0.61 mg/dL (0.55-1.30); TOTAL BILIRUBIN 1.7 mg/dL (0.0-1.0)
[2022-09-05] MEDS: NORMAL SALINE 5 ML DISP.SYRIN IVF SCH ×3 (06:22→21:46)
[2022-09-05 07:00] VITALS: BP_SYST 137; PULSE 102; RESP 18; TEMP 98.2; O2SAT 99
[2022-09-05 08:00] VITALS: BP_SYST 137; PULSE 102; RESP 18; TEMP 98.2; O2SAT 99
[2022-09-05] MEDS: FOLIC ACID 1 MG TABLET PO SCH (09:09)
[2022-09-05] MEDS: PANTOPRAZOLE SODIUM 40 MG TAB PO SCH (09:09)
[2022-09-05] MEDS: DILTIAZEM HCL 120 MG CAP.SR.24H PO SCH (09:09)
[2022-09-05] MEDS: QUEtiapine FUMARATE 25 MG TABLET PO SCH ×2 (09:09→21:57)
[2022-09-05 11:43] VITALS: BP_SYST 131; PULSE 88; RESP 17; TEMP 97.9; O2SAT 97
[2022-09-05] MEDS: FLUCONAZOLE 200 mg/ NS 100 ML IV SCH (13:12)
[2022-09-05 16:31] VITALS: BP_SYST 155; PULSE 110; RESP 19; TEMP 97.7; O2SAT 98
[2022-09-05 20:00] VITALS: O2SAT 98
[2022-09-05] MEDS: INSULIN REGULAR, HUMAN 100 UNITS/ML, 3 ML VIAL (humuLIN R) SUBCUT PRN (21:50)
[2022-09-05] MEDS: CITALOPRAM HYDROBROMIDE 20 MG TABLET PO SCH (21:57)
[2022-09-05] MEDS: MIRTAZAPINE 15 MG TABLET PO SCH (21:57)
[2022-09-05] MEDS: HYDROcodone/ACETAMIN 5-325 MG TAB (NORCO/ VICODIN) PO PRN (21:58)
[2022-09-06 00:11] VITALS: BP_SYST 130; PULSE 108; RESP 20; TEMP 97.8; O2SAT 97
[2022-09-06] MEDS: NORMAL SALINE 5 ML DISP.SYRIN IVF SCH ×3 (06:25→22:23)
[2022-09-06 06:31] LABS: BASOPHILS # (AUTO) 0.1 K/uL (0.0-0.2); BASOPHILS % (AUTO) 0.4 % (0.0-2.0); EOSINOPHILS # (AUTO) 0.1 K/uL (0.0-0.4); EOSINOPHILS % (AUTO) 0.7 % (0.0-4.0); HEMATOCRIT 25.5 % (36-54); HEMOGLOBIN 8.3 g/dL (14.0-18.0); LYMPHOCYTES # (AUTO) 1.3 K/uL (1.0-5.5); LYMPHOCYTES % (AUTO) 8.1 % (20.5-51.5); MEAN CORPUSCULAR HEMOGLOBIN 32 pg (27-31); MEAN CORPUSCULAR HGB CONC 33 % (32-36); MEAN CORPUSCULAR VOLUME 99 fL (79.0-98.0); MONOCYTES # (AUTO) 0.1 K/uL (0.0-1.0); MONOCYTES % (AUTO) 0.8 % (1.7-9.3); NEUTROPHILS # (AUTO) 14.3 K/uL (1.8-7.7); RED BLOOD CELL COUNT(AUTO) 2.58 MIL/uL (4.2-6.2); RED CELL DISTRIBUTION WIDTH 18.7 % (9.0-15.0); WHITE BLOOD COUNT (AUTO) 15.8 K/uL (4.8-10.8)
[2022-09-06 06:39] LABS: CALCIUM 8.5 mg/dL (8.4-11.0); CREATININE 0.58 mg/dL (0.55-1.30)
[2022-09-06 08:00] VITALS: BP_SYST 114; PULSE 99; RESP 14; TEMP 98.3; O2SAT 99
[2022-09-06] MEDS: DILTIAZEM HCL 120 MG CAP.SR.24H PO SCH (09:29)
[2022-09-06] MEDS: FOLIC ACID 1 MG TABLET PO SCH (09:29)
[2022-09-06] MEDS: PANTOPRAZOLE SODIUM 40 MG TAB PO SCH (09:29)
[2022-09-06] MEDS: CEFEPIME 2 GM in D5W 100 ML IV SCH (09:30)
[2022-09-06] MEDS: QUEtiapine FUMARATE 25 MG TABLET PO SCH ×2 (09:30→20:10)
[2022-09-06 10:11] LABS: ERYTHROCYTE SEDIMENTATION RATE 26 MM/HR (0-15)
[2022-09-06] MEDS ORDERED: MIRT-114 PO (10:30)
[2022-09-06] MEDS ORDERED: SER25 PO (10:30)
[2022-09-06] MEDS ORDERED: FOLI-43 PO (10:30)
[2022-09-06 11:58] VITALS: BP_SYST 131; PULSE 86; RESP 18; TEMP 97.9; O2SAT 95
[2022-09-06 12:08] LABS: PLATELET COUNT (AUTO) 44 K/uL (130-430)
[2022-09-06] MEDS: INSULIN REGULAR, HUMAN 100 UNITS/ML, 3 ML VIAL (humuLIN R) SUBCUT PRN (12:54)
[2022-09-06] MEDS: HYDROcodone/ACETAMIN 5-325 MG TAB (NORCO/ VICODIN) PO PRN (13:51)
[2022-09-06 18:21] VITALS: BP_SYST 118; PULSE 100; RESP 17; TEMP 98.4; O2SAT 96
[2022-09-06 20:00] VITALS: BP_SYST 123; PULSE 98; RESP 18; TEMP 97.7; O2SAT 94
[2022-09-06] MEDS: CITALOPRAM HYDROBROMIDE 20 MG TABLET PO SCH (20:10)
[2022-09-06] MEDS: MIRTAZAPINE 15 MG TABLET PO SCH (20:10)
[2022-09-07] VITALS: BP_SYST 151; BP_SYST 159; PULSE 101; PULSE 77; RESP 18; RESP 20; TEMP 98.4; O2SAT 95; O2SAT 98
[2022-09-07] MEDS: NORMAL SALINE 5 ML DISP.SYRIN IVF SCH ×3 (05:25→23:07)
[2022-09-07] MEDS: HYDROcodone/ACETAMIN 5-325 MG TAB (NORCO/ VICODIN) PO PRN (05:32)
[2022-09-07 06:09] LABS: BASOPHILS # (AUTO) 0.1 K/uL (0.0-0.2); BASOPHILS % (AUTO) 0.5 % (0.0-2.0); EOSINOPHILS # (AUTO) 0.1 K/uL (0.0-0.4); EOSINOPHILS % (AUTO) 0.6 % (0.0-4.0); HEMATOCRIT 22.2 % (36-54); HEMOGLOBIN 7.3 g/dL (14.0-18.0); LYMPHOCYTES # (AUTO) 1.1 K/uL (1.0-5.5); LYMPHOCYTES % (AUTO) 5.5 % (20.5-51.5); MEAN CORPUSCULAR HEMOGLOBIN 32 pg (27-31); MEAN CORPUSCULAR HGB CONC 33 % (32-36); MEAN CORPUSCULAR VOLUME 98 fL (79.0-98.0); MONOCYTES # (AUTO) 0.1 K/uL (0.0-1.0); MONOCYTES % (AUTO) 0.4 % (1.7-9.3); PLATELET COUNT (AUTO) 54 K/uL (130-430); RED BLOOD CELL COUNT(AUTO) 2.27 MIL/uL (4.2-6.2); RED CELL DISTRIBUTION WIDTH 18.3 % (9.0-15.0); WHITE BLOOD COUNT (AUTO) 19.4 K/uL (4.8-10.8)
[2022-09-07 07:00] VITALS: BP_SYST 121; PULSE 109; RESP 20; TEMP 97.5; O2SAT 95
[2022-09-07 08:00] VITALS: BP_SYST 121; PULSE 109; RESP 18; TEMP 97.5; O2SAT 95
[2022-09-07] MEDS: DILTIAZEM HCL 120 MG CAP.SR.24H PO SCH (08:22)
[2022-09-07] MEDS: PANTOPRAZOLE SODIUM 40 MG TAB PO SCH (08:22)
[2022-09-07] MEDS: QUEtiapine FUMARATE 25 MG TABLET PO SCH ×2 (08:22→21:00)
[2022-09-07] MEDS: FOLIC ACID 1 MG TABLET PO SCH (08:22)
[2022-09-07 11:59] VITALS: BP_SYST 112; PULSE 114; RESP 18; TEMP 98.7; O2SAT 96
[2022-09-07] MEDS ORDERED: LORazepam 2 MG/ML VIAL IVP ONE (16:45)
[2022-09-07] MEDS: EPOETIN ALFA-EPBX 4,000 UNITS/ML VIAL SUBCUT SCH (17:09)
[2022-09-07 17:10] VITALS: BP_SYST 128; PULSE 110; RESP 19; TEMP 99; O2SAT 97
[2022-09-07 20:00] VITALS: BP_SYST 139; PULSE 102; RESP 18; TEMP 98.7; O2SAT 96
[2022-09-07] MEDS: MIRTAZAPINE 15 MG TABLET PO SCH (21:06)
[2022-09-07] MEDS: CITALOPRAM HYDROBROMIDE 20 MG TABLET PO SCH (21:06)
[2022-09-08] VITALS: BP_SYST 143; PULSE 105; RESP 17; TEMP 98.5; O2SAT 97
[2022-09-08 05:19] LABS: BASOPHILS # (AUTO) 0.2 K/uL (0.0-0.2); BASOPHILS % (AUTO) 0.8 % (0.0-2.0); EOSINOPHILS % (AUTO) 0.1 % (0.0-4.0); HEMATOCRIT 22.8 % (36-54); HEMOGLOBIN 7.4 g/dL (14.0-18.0); LYMPHOCYTES # (AUTO) 1.8 K/uL (1.0-5.5); MEAN CORPUSCULAR HEMOGLOBIN 32 pg (27-31); MEAN CORPUSCULAR HGB CONC 32 % (32-36); MEAN CORPUSCULAR VOLUME 98 fL (79.0-98.0); MONOCYTES # (AUTO) 0.1 K/uL (0.0-1.0); MONOCYTES % (AUTO) 0.4 % (1.7-9.3); NEUTROPHILS % (AUTO) 91.7 % (40.0-70.0); PLATELET COUNT (AUTO) 59 K/uL (130-430); RED BLOOD CELL COUNT(AUTO) 2.33 MIL/uL (4.2-6.2); RED CELL DISTRIBUTION WIDTH 18.4 % (9.0-15.0); WHITE BLOOD COUNT (AUTO) 25.1 K/uL (4.8-10.8)
[2022-09-08 06:00] LABS: ALBUMIN 2.6 g/dL (3.4-4.8); CALCIUM 8.2 mg/dL (8.4-11.0); CREATININE 0.63 mg/dL (0.55-1.30); TOTAL BILIRUBIN 1.6 mg/dL (0.0-1.0)
[2022-09-08] MEDS: NORMAL SALINE 5 ML DISP.SYRIN IVF SCH ×2 (06:26→21:46)
[2022-09-08 08:00] VITALS: BP_SYST 114; PULSE 85; RESP 18; TEMP 97.7
[2022-09-08] MEDS: FOLIC ACID 1 MG TABLET PO SCH (09:16)
[2022-09-08] MEDS: DILTIAZEM HCL 120 MG CAP.SR.24H PO SCH (09:16)
[2022-09-08] MEDS: PANTOPRAZOLE SODIUM 40 MG TAB PO SCH (09:16)
[2022-09-08] MEDS: QUEtiapine FUMARATE 25 MG TABLET PO SCH ×2 (09:21→21:46)
[2022-09-08 10:56] VITALS: BP_SYST 129; PULSE 97; RESP 18; TEMP 97.7; O2SAT 99
[2022-09-08 16:47] VITALS: BP_SYST 129; PULSE 97; RESP 17; TEMP 97.8; O2SAT 99
[2022-09-08 20:30] VITALS: BP_SYST 137; PULSE 92; RESP 16; TEMP 98.2; O2SAT 95
[2022-09-09 01:23] VITALS: BP_SYST 111; PULSE 100; RESP 17; TEMP 97.4; O2SAT 99
[2022-09-09] MEDS: NORMAL SALINE 5 ML DISP.SYRIN IVF SCH ×3 (05:43→21:24)
[2022-09-09 06:25] LABS: CALCIUM 8.6 mg/dL (8.4-11.0); CREATININE 0.65 mg/dL (0.55-1.30)
[2022-09-09 07:56] LABS: HEMATOCRIT 23.5 % (36-54); HEMOGLOBIN 7.6 g/dL (14.0-18.0); MEAN CORPUSCULAR HEMOGLOBIN 32 pg (27-31); MEAN CORPUSCULAR HGB CONC 32 % (32-36); MEAN CORPUSCULAR VOLUME 99 fL (79.0-98.0); PLATELET COUNT (AUTO) 59 K/uL (130-430); RED BLOOD CELL COUNT(AUTO) 2.37 MIL/uL (4.2-6.2); RED CELL DISTRIBUTION WIDTH 18.7 % (9.0-15.0); WHITE BLOOD COUNT (AUTO) 24.3 K/uL (4.8-10.8)
[2022-09-09 08:00] VITALS: BP_SYST 124; PULSE 89; RESP 18; TEMP 97.2; O2SAT 99
[2022-09-09] MEDS: FOLIC ACID 1 MG TABLET PO SCH (08:18)
[2022-09-09] MEDS: PANTOPRAZOLE SODIUM 40 MG TAB PO SCH (08:18)
[2022-09-09] MEDS: DILTIAZEM HCL 120 MG CAP.SR.24H PO SCH (08:18)
[2022-09-09 09:24] LABS: ATYPICAL LYMPHOCYTES % 7 % (0-0); BAND % (MANUAL) 9 % (0-6); BASOPHILS % (MANUAL) 0 % (0-2); EOSINOPHILS % (MANUAL) 0 % (0-7); LYMPHOCYTES % (MANUAL) 14 % (20-46); METAMYELOCYTES % 10 % (0-0); MONOCYTES % (MANUAL) 11 % (0-11); MYELOCYTES % 8 % (0-0); PROMYELOCYTES % 1 % (0-0)
[2022-09-09 12:00] VITALS: BP_SYST 148; PULSE 88; RESP 20; TEMP 96.9; O2SAT 96
[2022-09-09] MEDS ORDERED: ACYCLOVIR 400 MG TABLET PO ONE (15:00)
[2022-09-09 16:00] VITALS: BP_SYST 138; PULSE 101; RESP 20; TEMP 98; O2SAT 98
[2022-09-09] MEDS: ACYCLOVIR 400 MG TABLET PO SCH ×2 (17:32→21:24)
[2022-09-09] MEDS: EPOETIN ALFA-EPBX 4,000 UNITS/ML VIAL SUBCUT SCH (17:41)
[2022-09-09] MEDS: INSULIN REGULAR, HUMAN 100 UNITS/ML, 3 ML VIAL (humuLIN R) SUBCUT PRN (18:04)
[2022-09-09 20:00] VITALS: BP_SYST 128; PULSE 114; RESP 18; TEMP 97.9; O2SAT 99
[2022-09-09] MEDS: QUEtiapine FUMARATE 25 MG TABLET PO SCH (20:38)
[2022-09-09 22:48] VITALS: O2SAT 98
[2022-09-10 00:27] VITALS: BP_SYST 117; PULSE 100; RESP 18; TEMP 98.1; O2SAT 99
[2022-09-10 06:15] LABS: BASOPHILS # (AUTO) 0.2 K/uL (0.0-0.2); BASOPHILS % (AUTO) 0.6 % (0.0-2.0); EOSINOPHILS % (AUTO) 0.2 % (0.0-4.0); HEMATOCRIT 22.9 % (36-54); HEMOGLOBIN 7.4 g/dL (14.0-18.0); LYMPHOCYTES # (AUTO) 1.4 K/uL (1.0-5.5); LYMPHOCYTES % (AUTO) 4.8 % (20.5-51.5); MEAN CORPUSCULAR HEMOGLOBIN 32 pg (27-31); MEAN CORPUSCULAR HGB CONC 32 % (32-36); MEAN CORPUSCULAR VOLUME 98 fL (79.0-98.0); MONOCYTES # (AUTO) 0.1 K/uL (0.0-1.0); MONOCYTES % (AUTO) 0.4 % (1.7-9.3); PLATELET COUNT (AUTO) 67 K/uL (130-430); RED BLOOD CELL COUNT(AUTO) 2.34 MIL/uL (4.2-6.2); WHITE BLOOD COUNT (AUTO) 29.8 K/uL (4.8-10.8)
[2022-09-10 06:34] LABS: CALCIUM 8.6 mg/dL (8.4-11.0); CREATININE 0.72 mg/dL (0.55-1.30)
[2022-09-10] MEDS: ACYCLOVIR 400 MG TABLET PO SCH ×5 (06:53→21:20)
[2022-09-10] MEDS: NORMAL SALINE 5 ML DISP.SYRIN IVF SCH ×3 (06:53→21:22)
[2022-09-10 08:20] VITALS: BP_SYST 149; PULSE 106; RESP 20; TEMP 96.8; O2SAT 95
[2022-09-10] MEDS: PANTOPRAZOLE SODIUM 40 MG TAB PO SCH (09:11)
[2022-09-10] MEDS: QUEtiapine FUMARATE 100 MG TABLET PO SCH ×2 (09:11→21:19)
[2022-09-10] MEDS: FOLIC ACID 1 MG TABLET PO SCH (09:11)
[2022-09-10] MEDS: DILTIAZEM HCL 120 MG CAP.SR.24H PO SCH (09:11)
[2022-09-10 11:20] VITALS: BP_SYST 114; PULSE 132; RESP 16; TEMP 98.3; O2SAT 95
[2022-09-10 19:00] VITALS: O2SAT 95
[2022-09-10 19:11] VITALS: BP_SYST 133; PULSE 112; RESP 16; TEMP 98; O2SAT 99
[2022-09-10 20:00] VITALS: BP_SYST 139; PULSE 113; RESP 18; TEMP 96.5; O2SAT 99
[2022-09-10] MEDS: INSULIN REGULAR, HUMAN 100 UNITS/ML, 3 ML VIAL (humuLIN R) SUBCUT PRN (21:32)
[2022-09-11] VITALS: BP_SYST 137; PULSE 110; RESP 18; TEMP 96.7; O2SAT 99
[2022-09-11] MEDS: ACYCLOVIR 400 MG TABLET PO SCH ×5 (05:45→21:24)
[2022-09-11] MEDS: NORMAL SALINE 5 ML DISP.SYRIN IVF SCH ×3 (05:46→21:37)
[2022-09-11 09:45] VITALS: BP_SYST 133; PULSE 101; RESP 18; TEMP 98.2; O2SAT 94
[2022-09-11] MEDS: QUEtiapine FUMARATE 100 MG TABLET PO SCH (09:51)
[2022-09-11] MEDS: FOLIC ACID 1 MG TABLET PO SCH (09:51)
[2022-09-11] MEDS: PANTOPRAZOLE SODIUM 40 MG TAB PO SCH (09:52)
[2022-09-11] MEDS: DILTIAZEM HCL 120 MG CAP.SR.24H PO SCH (09:53)
[2022-09-11 11:56] VITALS: BP_SYST 136; PULSE 109; RESP 18; TEMP 97.5; O2SAT 96
[2022-09-11 15:38] VITALS: BP_SYST 161; PULSE 64; RESP 18; TEMP 97.6; O2SAT 98
[2022-09-11] MEDS: EPOETIN ALFA-EPBX 4,000 UNITS/ML VIAL SUBCUT SCH (17:29)
[2022-09-11] MEDS ORDERED: QUEtiapine FUMARATE 25 MG TABLET PO SCH (21:00)
[2022-09-11] MEDS: INSULIN REGULAR, HUMAN 100 UNITS/ML, 3 ML VIAL (humuLIN R) SUBCUT PRN (21:36)
[2022-09-12] VITALS: BP_SYST 100; PULSE 128; RESP 18; TEMP 99.3; O2SAT 95
[2022-09-12] MEDS ORDERED: PIPERACILLIN/TAZO 3.375/DEX-IS 50 ML IV SCH (00:30)
[2022-09-12] MEDS ORDERED: PIPERACILLIN/TAZOBACTAM 3.375 GM/VIAL (ZOSYN) IV ONE (01:10)
[2022-09-12 03:17] VITALS: O2SAT 95
[2022-09-12] MEDS ORDERED: DEXTROSE 50% JECT 50 ML DISP.SYRIN ONE (04:30)
[2022-09-12] MEDS ORDERED: EPINEPHrine JECT 0.1 MG/ML SYR ONE (04:30)
[2022-09-12] MEDS ORDERED: SODIUM BICARBONATE 8.4% JECT 50 MEQ/50 ML SYRINGE ONE (04:30)
[2022-09-12] MEDS ORDERED: CALCIUM CHLORIDE 1 GM/10 ML DISP.SYRIN (14 mEq Ca++/SYR) ONE (04:30)
== END 2022-09-12 04:30 | DRG 853 ==
LOC: SED 11:48 → SMU 15:16
PROVIDERS: ADMIT Specialist; ATTEND Specialist
PROC: 0QB23ZX Excision of Right Pelvic Bone, Percutaneous Approach, Diagnostic (ICD-10-PCS; 2022-08-28)
PROC: 30233N1 Transfusion of Nonautologous Red Blood Cells into Peripheral Vein, Percutaneous Approach (ICD-10-PCS; 2022-08-28)
PROC: 30233R1 Transfusion of Nonautologous Platelets into Peripheral Vein, Percutaneous Approach (ICD-10-PCS; 2022-08-31)
PROC: 5A12012 Performance of Cardiac Output, Single, Manual (ICD-10-PCS; principal; 2022-09-12)
PROC: 0BH17EZ Insertion of Endotracheal Airway into Trachea, Via Natural or Artificial Opening (ICD-10-PCS; 2022-09-12)
DX: A41.9 Sepsis, unspecified organism (principal); B00.4 Herpesviral encephalitis; E43 Unspecified severe protein-calorie malnutrition; D61.818 Other pancytopenia; E87.1 Hypo-osmolality and hyponatremia; N39.0 Urinary tract infection, site not specified; F23 Brief psychotic disorder; E11.65 Type 2 diabetes mellitus with hyperglycemia; E83.51 Hypocalcemia; E87.6 Hypokalemia; F41.9 Anxiety disorder, unspecified; E88.09 Other disorders of plasma-protein metabolism, not elsewhere classified; D69.6 Thrombocytopenia, unspecified; I48.91 Unspecified atrial fibrillation; K21.9 Gastro-esophageal reflux disease without esophagitis; D46.9 Myelodysplastic syndrome, unspecified; I10 Essential (primary) hypertension; B96.5 Pseudomonas (aeruginosa) (mallei) (pseudomallei) as the cause of diseases classified elsewhere; Z87.440 Personal history of urinary (tract) infections; Z79.4 Long term (current) use of insulin; Z79.899 Other long term (current) drug therapy; Z78.1 Physical restraint status; Z79.01 Long term (current) use of anticoagulants; Z68.20 Body mass index [BMI] 20.0-20.9, adult
CPT/HCPCS: 36415; 38220; 38221; 70450-TC; 71045; 76376; 76700-TC; 77012; 80048; 80053; 81000; 82247; 82248; 83516; 83615; 83735; 84100; 85007; 85025; 85027; 85060; 85610-TC; 85651-TC; 85730-TC; 86038; 86704; 86706; 86708; 86803; 86886; 86900; 86901; 86920; 87040; 87081; 87086; 87340; 88305; 88311; 88313; 88341; 88342; 92950; 97110-GP; 97116-GP; 97530-GP; 99285; J0171; J0692; J0696; J1450; J1815; J2001; J2060; J2250; J2405; J2543; J3010; J7030; J7040; J7042; J7050; J7060; P9021; P9034; Q5106